=== PATIENT | female | born 1940 | race Caucasian/White ===

== ENCOUNTER → 2019-10-25 05:30 | Outpatient (REF) | payer MEDICARE, OTHER, SELFPAY ==
[2019-10-25 07:46] LABS: Prothrombin Time Fingerstick 20.1 SEC (11.9-14.4)
== END ==
LOC: OLS.ACH 05:30
PROVIDERS: Visit Provider Family Medicine
DX: G93.41 Metabolic encephalopathy (principal); I82.409 Acute embolism and thrombosis of unspecified deep veins of unspecified lower extremity
CPT/HCPCS: 36416; 85610

== ENCOUNTER → 2019-10-28 05:41 | Outpatient (REF) | payer MEDICARE, OTHER, SELFPAY ==
[2019-10-28 07:22] LABS: International Normalized Ratio 1.3; Prothrombin Time (Protime)PT. 16.1 SECONDS (11.7-14.9)
== END ==
LOC: OLS.ACH 05:41
PROVIDERS: Visit Provider Family Medicine
DX: I82.409 Acute embolism and thrombosis of unspecified deep veins of unspecified lower extremity (principal)
CPT/HCPCS: 36415; 85610

== ENCOUNTER → 2019-10-30 04:30 | Outpatient (REF) | payer MEDICARE, OTHER, SELFPAY ==
[2019-10-30 08:30] LABS: Prothrombin Time (Protime)PT. 22.3 SECONDS (11.7-14.9)
== END ==
LOC: OLS.ACH 04:30
PROVIDERS: Visit Provider Family Medicine
DX: I82.409 Acute embolism and thrombosis of unspecified deep veins of unspecified lower extremity (principal)
CPT/HCPCS: 36415; 85610

== ENCOUNTER → 2019-11-02 05:00 | Outpatient (REF) | payer MEDICARE, OTHER, SELFPAY ==
[2019-11-02 09:01] LABS: Prothrombin Time Fingerstick 29.5 SEC (11.9-14.4)
== END ==
LOC: OLS.ACH 05:00
PROVIDERS: Visit Provider Family Medicine
DX: G93.41 Metabolic encephalopathy (principal); I65.21 Occlusion and stenosis of right carotid artery
CPT/HCPCS: 36416; 85610

== ENCOUNTER → 2019-11-06 05:00 | Outpatient (REF) | payer MEDICARE, OTHER, SELFPAY ==
[2019-11-06 09:26] LABS: Prothrombin Time Fingerstick 31.9 SEC (11.9-14.4)
== END ==
LOC: OLS.ACH 05:00
PROVIDERS: Visit Provider Family Medicine
DX: G93.41 Metabolic encephalopathy (principal); I65.21 Occlusion and stenosis of right carotid artery
CPT/HCPCS: 36416; 85610

== ENCOUNTER → 2019-11-14 04:00 | Outpatient (REF) | payer MEDICARE, OTHER, SELFPAY ==
[2019-11-14 09:09] LABS: International Normalized Ratio 1.8; Prothrombin Time (Protime)PT. 20.7 SECONDS (11.7-14.9)
== END ==
LOC: OLS.ACH 04:00
PROVIDERS: Referring Provider Family Medicine; Visit Provider Family Medicine
DX: G93.41 Metabolic encephalopathy (principal); I25.10 Atherosclerotic heart disease of native coronary artery without angina pectoris
CPT/HCPCS: 36415; 85610

== ENCOUNTER → 2019-11-23 05:00 | Outpatient (REF) | payer SELFPAY ==
[2019-11-23 08:51] LABS: Prothrombin Time Fingerstick 24.6 SEC (11.9-14.4)
== END ==
LOC: OLS.ACH 05:00
PROVIDERS: Referring Provider Family Medicine; Visit Provider Family Medicine
DX: G93.41 Metabolic encephalopathy (principal); I65.21 Occlusion and stenosis of right carotid artery
CPT/HCPCS: 36416; 85610

== ENCOUNTER → 2019-12-25 04:00 | Outpatient (REF) | payer MEDICARE, OTHER, SELFPAY ==
[2019-12-25 08:40] LABS: Prothrombin Time Fingerstick 23.8 SEC (11.9-14.4)
== END ==
LOC: OLS.ACH 04:00
PROVIDERS: Referring Provider Family Medicine; Visit Provider Family Medicine
DX: I65.21 Occlusion and stenosis of right carotid artery (principal)
CPT/HCPCS: 36416; 85610

== ENCOUNTER → 2020-01-02 10:17 | Outpatient (REF) | payer MEDICARE, OTHER, SELFPAY ==
[2020-01-02 11:19] LABS: Absolute Lymphocyte Count 1.37 X10^3/uL (0.83-4.51); Absolute Neutrophil Count 4.3 X10^3/uL (2.0-7.7); Basophil# 0.02 X10^3/uL; Basophil% 0.3 % (0-1); Eosinophil# 0.12 X10^3/uL; Eosinophils% 1.8 % (0-5); Hematocrit 40.3 % (37-47); Hemoglobin 12.4 g/dL (12.0-15.0); Lymphocyte # 1.37 X10^3/ul (4.0); Mean Corp Hgb Conc 30.8 g/dL (32-36); Mean Corpuscular Hgb 26.8 pg (27.0-32.0); Mean Platelet Vol. 9.9 fl (6.2-12.0); Monocyte% 10.8 % (0-10); NRBC Flagged by Analyzer 0 % (0-5); Neutrophil # 4.27 X10^3/uL (2.7-7.7); Neutrophil % 65.6 % (47-70); Platelet Count 279 K/mm3 (150-450); RBC Distribution Width CV 16.1 % (11.6-14.6); RBC Distribution Width SD 51.9 fl (35.1-43.9); Red Blood Count 4.63 M/mm3 (4.2-5.4); White Blood Count 6.5 K/mm3 (4.4-11.0)
[2020-01-02 11:28] LABS: Anion Gap 4 (5-15); BUN 14 mg/dL (7-18); BUN/Creat Ratio 21.8 RATIO (10-20); Calcium,Total 8.6 mg/dL (8.5-10.1); Chloride 106 mmol/L (98-107); Creatinine, Serum 0.64 mg/dL (0.55-1.02); EST Glomerular Filtration Rate 95 mL/min (>60); Est Glom Filt Rate - Afr Amer 114 mL/min (>60); Glucose 106 mg/dL (74-106); Potassium 3.8 mmol/L (3.5-5.1); Sodium Level 139 mmol/L (136-145)
== END ==
LOC: OLS.ACH 10:17
PROVIDERS: Visit Provider Family Medicine
DX: R13.12 Dysphagia, oropharyngeal phase (principal)
CPT/HCPCS: 36415; 80048; 85025

== ENCOUNTER → 2020-01-22 04:00 | Outpatient (REF) | payer MEDICARE, OTHER, SELFPAY ==
[2020-01-22 08:15] LABS: Prothrombin Time Fingerstick 24.1 SEC (11.9-14.4)
== END ==
LOC: OLS.ACH 04:00
PROVIDERS: Referring Provider Family Medicine; Visit Provider Family Medicine
DX: I65.21 Occlusion and stenosis of right carotid artery (principal)
CPT/HCPCS: 36416; 85610

== ENCOUNTER → 2020-01-29 15:30 | Outpatient (REF) | payer MEDICARE, OTHER, SELFPAY ==
[2020-01-29 16:31] LABS: Hematocrit 40.6 % (37-47); Hemoglobin 12.6 g/dL (12.0-15.0); Mean Corpuscular Volume 87.1 fL (81-99); Platelet Count 268 K/mm3 (150-450); RBC Distribution Width CV 16.5 % (11.6-14.6); Red Blood Count 4.66 M/mm3 (4.2-5.4); White Blood Count 6.4 K/mm3 (4.4-11.0)
[2020-01-29 16:40] LABS: International Normalized Ratio 1.9; Prothrombin Time (Protime)PT. 20.9 SECONDS (11.7-14.9)
[2020-01-29 16:41] LABS: Anion Gap 4 (5-15); BUN 15 mg/dL (7-18); BUN/Creat Ratio 23.3 RATIO (10-20); Calcium,Total 8.7 mg/dL (8.5-10.1); Chloride 108 mmol/L (98-107); Creatinine, Serum 0.64 mg/dL (0.55-1.02); EST Glomerular Filtration Rate 94 mL/min (>60); Est Glom Filt Rate - Afr Amer 114 mL/min (>60); Glucose 93 mg/dL (74-106); Potassium 3.8 mmol/L (3.5-5.1); Sodium Level 141 mmol/L (136-145)
== END ==
LOC: OLS.ACH 15:30
PROVIDERS: Referring Provider Family Medicine; Visit Provider Family Medicine
DX: I65.21 Occlusion and stenosis of right carotid artery (principal); R19.5 Other fecal abnormalities
CPT/HCPCS: 36415; 80048; 85027; 85610; 87493

== ENCOUNTER → 2020-02-27 05:00 | Outpatient (REF) | payer MEDICARE, OTHER, SELFPAY ==
[2020-02-27 09:01] LABS: Prothrombin Time Fingerstick 20.5 SEC (11.9-14.4)
== END ==
LOC: OLS.ACH 05:00
PROVIDERS: Visit Provider Family Medicine
DX: I65.21 Occlusion and stenosis of right carotid artery (principal)
CPT/HCPCS: 36416; 85610

== ENCOUNTER → 2020-03-06 05:00 | Outpatient (REF) | payer MEDICARE, OTHER, SELFPAY | LOC: LABSPEC 05:00 | PROVIDERS: Referring Provider Family Medicine; Visit Provider Family Medicine | DX: Z11.59 Encounter for screening for other viral diseases (principal) | CPT/HCPCS: 87635; U0003 ==

== ENCOUNTER → 2020-03-08 05:00 | Outpatient (REF) | payer MEDICARE, OTHER, SELFPAY ==
[2020-03-08 09:36] LABS: Prothrombin Time Fingerstick 23.1 SEC (11.9-14.4)
== END ==
LOC: OLS.ACH 05:00
PROVIDERS: Visit Provider Family Medicine
DX: I82.5Y2 Chronic embolism and thrombosis of unspecified deep veins of left proximal lower extremity (principal)
CPT/HCPCS: 36416; 85610

== ENCOUNTER → 2020-03-13 05:00 | Outpatient (REF) | payer MEDICARE, OTHER, SELFPAY | LOC: OLS.ACH 05:00 | PROVIDERS: Visit Provider Family Medicine | DX: Z11.59 Encounter for screening for other viral diseases (principal) | CPT/HCPCS: 87635; U0003 ==

== ENCOUNTER → 2020-03-18 10:59 | Outpatient (REF) | payer MEDICARE, OTHER, SELFPAY | LOC: OLS.ACH 10:59 | PROVIDERS: Visit Provider Family Medicine | DX: Z11.59 Encounter for screening for other viral diseases (principal) | CPT/HCPCS: 87635; U0003 ==

== ENCOUNTER → 2020-03-22 12:51 | Outpatient (REF) | payer MEDICARE, OTHER, SELFPAY | LOC: OLS.ACH 12:51 | PROVIDERS: Referring Provider Family Medicine; Visit Provider Family Medicine | DX: Z03.818 Encounter for observation for suspected exposure to other biological agents ruled out (principal) | CPT/HCPCS: 87635; U0003 ==

== ENCOUNTER → 2020-03-25 05:00 | Outpatient (REF) | payer MEDICARE, OTHER, SELFPAY ==
[2020-03-25 11:15] LABS: Prothrombin Time Fingerstick 20.9 SEC (11.9-14.4)
== END ==
LOC: OLS.ACH 05:00
PROVIDERS: Referring Provider Family Medicine; Visit Provider Family Medicine
DX: I65.21 Occlusion and stenosis of right carotid artery (principal)
CPT/HCPCS: 36416; 85610

== ENCOUNTER → 2020-03-25 08:00 | Outpatient (REF) | payer MEDICARE, OTHER, SELFPAY | LOC: OLS.ACH 08:00 | PROVIDERS: PCP Family Medicine; Referring Provider Family Medicine; Visit Provider Family Medicine | DX: Z03.818 Encounter for observation for suspected exposure to other biological agents ruled out (principal) | CPT/HCPCS: 87635; U0003 ==

== ENCOUNTER → 2020-03-29 10:04 | Outpatient (REF) | payer MEDICARE, OTHER, SELFPAY | LOC: OLS.ACH 10:04 | PROVIDERS: PCP Family Medicine; Referring Provider Family Medicine; Visit Provider Family Medicine | DX: Z03.818 Encounter for observation for suspected exposure to other biological agents ruled out (principal) | CPT/HCPCS: 87635; U0003 ==

== ENCOUNTER → 2020-04-01 14:02 | Outpatient (REF) | payer MEDICARE, OTHER, SELFPAY | LOC: OLS.ACH 14:02 | PROVIDERS: PCP Family Medicine; Referring Provider Family Medicine; Visit Provider Family Medicine | DX: Z03.818 Encounter for observation for suspected exposure to other biological agents ruled out (principal) | CPT/HCPCS: 87635; U0003 ==

== ENCOUNTER → 2020-04-05 10:29 | Outpatient (REF) | payer MEDICARE, OTHER, SELFPAY | LOC: OLS.ACH 10:29 | PROVIDERS: PCP Family Medicine; Referring Provider Family Medicine; Visit Provider Family Medicine | DX: Z03.818 Encounter for observation for suspected exposure to other biological agents ruled out (principal) | CPT/HCPCS: 87635; U0003 ==

== ENCOUNTER → 2020-04-08 04:00 | Outpatient (REF) | payer MEDICARE, OTHER, SELFPAY | LOC: OLS.ACH 04:00 | PROVIDERS: PCP Family Medicine; Referring Provider Family Medicine; Visit Provider Family Medicine | DX: I82.409 Acute embolism and thrombosis of unspecified deep veins of unspecified lower extremity (principal) | CPT/HCPCS: 36416; 85610 ==

== ENCOUNTER → 2020-04-09 11:14 | Outpatient (REF) | payer MEDICARE, OTHER, SELFPAY | LOC: OLS.ACH 11:14 | PROVIDERS: PCP Family Medicine; Referring Provider Family Medicine; Visit Provider Family Medicine | DX: Z03.818 Encounter for observation for suspected exposure to other biological agents ruled out (principal) | CPT/HCPCS: 87635; U0003 ==

== ENCOUNTER → 2020-04-12 12:03 | Outpatient (REF) | payer MEDICARE, OTHER, SELFPAY | LOC: OLS.ACH 12:03 | PROVIDERS: PCP Family Medicine; Referring Provider Family Medicine; Visit Provider Family Medicine | DX: Z03.818 Encounter for observation for suspected exposure to other biological agents ruled out (principal) | CPT/HCPCS: 87635; U0003 ==

== ENCOUNTER → 2020-04-16 16:30 | Outpatient (REF) | payer MEDICARE, OTHER, SELFPAY | LOC: OLS.ACH 16:30 | PROVIDERS: PCP Family Medicine; Referring Provider Family Medicine; Visit Provider Family Medicine | DX: Z03.818 Encounter for observation for suspected exposure to other biological agents ruled out (principal) | CPT/HCPCS: 87635; U0003 ==

== ENCOUNTER → 2020-04-17 05:00 | Outpatient (REF) | payer MEDICARE, OTHER, SELFPAY ==
[2020-04-17 07:41] LABS: Prothrombin Time Fingerstick 20.9 SEC (11.9-14.4)
== END ==
LOC: OLS.ACH 05:00
PROVIDERS: PCP Family Medicine; Referring Provider Family Medicine; Visit Provider Family Medicine
DX: I82.409 Acute embolism and thrombosis of unspecified deep veins of unspecified lower extremity (principal)
CPT/HCPCS: 36416; 85610

== ENCOUNTER → 2020-04-22 05:00 | Outpatient (REF) | payer MEDICARE, OTHER, SELFPAY ==
[2020-04-22 08:56] LABS: Prothrombin Time Fingerstick 18.5 SEC (11.9-14.4)
== END ==
LOC: OLS.ACH 05:00
PROVIDERS: PCP Family Medicine; Visit Provider Family Medicine
DX: I65.21 Occlusion and stenosis of right carotid artery (principal)
CPT/HCPCS: 36416; 85610

== ENCOUNTER → 2020-04-23 07:35 | Outpatient (REF) | payer MEDICARE, OTHER, SELFPAY | LOC: OLS.ACH 07:35 | PROVIDERS: PCP Family Medicine; Referring Provider Family Medicine; Visit Provider Family Medicine | DX: Z03.818 Encounter for observation for suspected exposure to other biological agents ruled out (principal) | CPT/HCPCS: 87635; U0003 ==

== ENCOUNTER → 2020-04-25 11:15 | Outpatient (REF) | payer MEDICARE, OTHER, SELFPAY ==
[2020-04-25 12:20] LABS: Prothrombin Time Fingerstick 19.5 SEC (11.9-14.4)
== END ==
LOC: OLS.ACH 11:15
PROVIDERS: PCP Family Medicine; Referring Provider Family Medicine; Visit Provider Family Medicine
DX: Z79.01 Long term (current) use of anticoagulants (principal)
CPT/HCPCS: 36416; 85610

== ENCOUNTER → 2020-04-29 04:00 | Outpatient (REF) | payer MEDICARE, OTHER, SELFPAY ==
[2020-04-29 07:11] LABS: Prothrombin Time Fingerstick 22.1 SEC (11.9-14.4)
== END ==
LOC: OLS.ACH 04:00
PROVIDERS: PCP Family Medicine; Referring Provider Family Medicine; Visit Provider Family Medicine
DX: I82.5Y2 Chronic embolism and thrombosis of unspecified deep veins of left proximal lower extremity (principal)
CPT/HCPCS: 36416; 85610

== ENCOUNTER → 2020-04-30 14:13 | Outpatient (REF) | payer MEDICARE, OTHER, SELFPAY | LOC: OLS.ACH 14:13 | PROVIDERS: PCP Family Medicine; Visit Provider Family Medicine | DX: Z03.818 Encounter for observation for suspected exposure to other biological agents ruled out (principal) | CPT/HCPCS: 87635; U0003 ==

== ENCOUNTER → 2020-05-06 04:00 | Outpatient (REF) | payer MEDICARE, OTHER, SELFPAY | LOC: OLS.ACH 04:00 | PROVIDERS: PCP Family Medicine; Referring Provider Family Medicine; Visit Provider Family Medicine | DX: I82.5Y2 Chronic embolism and thrombosis of unspecified deep veins of left proximal lower extremity (principal) | CPT/HCPCS: 36416; 85610 ==

== ENCOUNTER → 2020-05-07 11:12 | Outpatient (REF) | payer MEDICARE, OTHER, SELFPAY | LOC: OLS.ACH 11:12 | PROVIDERS: PCP Family Medicine; Referring Provider Family Medicine; Visit Provider Family Medicine | DX: Z03.818 Encounter for observation for suspected exposure to other biological agents ruled out (principal) | CPT/HCPCS: 87635; U0003 ==

== ENCOUNTER → 2020-05-13 05:00 | Outpatient (REF) | payer MEDICARE, OTHER, SELFPAY ==
[2020-05-13 08:35] LABS: Absolute Lymphocyte Count 2.41 X10^3/uL (0.83-4.51); Absolute Neutrophil Count 4.6 X10^3/uL (2.0-7.7); Basophil# 0.03 X10^3/uL; Basophil% 0.4 % (0-1); Eosinophil# 0.19 X10^3/uL; Eosinophils% 2.3 % (0-5); Hematocrit 44.9 % (37-47); Hemoglobin 13.8 g/dL (12.0-15.0); Lymphocyte # 2.41 X10^3/ul (4.0); Lymphocyte % 29.2 % (19-41); Mean Corp Hgb Conc 30.7 g/dL (32-36); Mean Corpuscular Hgb 28.3 pg (27.0-32.0); Mean Platelet Vol. 10.6 fl (6.2-12.0); Monocyte# 1.04 X10^3/uL; Monocyte% 12.6 % (0-10); NRBC Flagged by Analyzer 0 % (0-5); Neutrophil # 4.55 X10^3/uL (2.7-7.7); Neutrophil % 55.3 % (47-70); Platelet Count 277 K/mm3 (150-450); RBC Distribution Width CV 14.9 % (11.6-14.6); RBC Distribution Width SD 50.1 fl (35.1-43.9); Red Blood Count 4.88 M/mm3 (4.2-5.4); White Blood Count 8.2 K/mm3 (4.4-11.0)
[2020-05-13 08:50] LABS: Anion Gap 5 (5-15); BUN 21 mg/dL (7-18); BUN/Creat Ratio 28.8 RATIO (10-20); Calcium,Total 8.7 mg/dL (8.5-10.1); Chloride 106 mmol/L (98-107); Creatinine, Serum 0.73 mg/dL (0.55-1.02); EST Glomerular Filtration Rate 82 mL/min (>60); Est Glom Filt Rate - Afr Amer 99 mL/min (>60); Glucose 80 mg/dL (74-106); Potassium 4.3 mmol/L (3.5-5.1); Sodium Level 139 mmol/L (136-145)
== END ==
LOC: OLS.ACH 05:00
PROVIDERS: PCP Family Medicine; Referring Provider Family Medicine; Visit Provider Family Medicine
DX: I10 Essential (primary) hypertension (principal)
CPT/HCPCS: 36415; 80048; 85025

== ENCOUNTER → 2020-05-20 04:00 | Outpatient (REF) | payer MEDICARE, OTHER, SELFPAY ==
[2020-05-20 08:10] LABS: Prothrombin Time Fingerstick 21.2 SEC (11.9-14.4)
== END ==
LOC: OLS.ACH 04:00
PROVIDERS: PCP Family Medicine; Referring Provider Family Medicine; Visit Provider Family Medicine
DX: I65.21 Occlusion and stenosis of right carotid artery (principal)
CPT/HCPCS: 36416; 85610

== ENCOUNTER → 2020-05-21 10:05 | Outpatient (REF) | payer MEDICARE, OTHER, SELFPAY | LOC: OLS.ACH 10:05 | PROVIDERS: PCP Family Medicine; Referring Provider Family Medicine; Visit Provider Family Medicine | DX: Z03.818 Encounter for observation for suspected exposure to other biological agents ruled out (principal) | CPT/HCPCS: 87635; U0003 ==

== ENCOUNTER → 2020-05-27 05:00 | Outpatient (REF) | payer MEDICARE, OTHER, SELFPAY ==
[2020-05-27 08:11] LABS: Prothrombin Time Fingerstick 34.2 SEC (11.9-14.4)
== END ==
LOC: OLS.ACH 05:00
PROVIDERS: PCP Family Medicine; Referring Provider Family Medicine; Visit Provider Family Medicine
DX: I65.21 Occlusion and stenosis of right carotid artery (principal)
CPT/HCPCS: 36416; 85610

== ENCOUNTER → 2020-06-03 05:15 | Outpatient (REF) | payer MEDICARE, OTHER, SELFPAY ==
[2020-06-03 07:50] LABS: Prothrombin Time Fingerstick 20.3 SEC (11.9-14.4)
== END ==
LOC: OLS.ACH 05:15
PROVIDERS: PCP Family Medicine; Visit Provider Family Medicine
DX: I48.91 Unspecified atrial fibrillation (principal)
CPT/HCPCS: 36416; 85610

== ENCOUNTER → 2020-06-04 07:58 | Outpatient (REF) | payer MEDICARE, OTHER, SELFPAY | LOC: OLS.ACH 07:58 | PROVIDERS: PCP Family Medicine; Referring Provider Family Medicine; Visit Provider Family Medicine | DX: Z03.818 Encounter for observation for suspected exposure to other biological agents ruled out (principal) | CPT/HCPCS: 87635; U0003 ==

== ENCOUNTER → 2020-06-18 09:24 | Outpatient (REF) | payer MEDICARE, OTHER, SELFPAY | LOC: OLS.ACH 09:24 | PROVIDERS: PCP Family Medicine; Referring Provider Family Medicine; Visit Provider Family Medicine | DX: Z03.818 Encounter for observation for suspected exposure to other biological agents ruled out (principal) | CPT/HCPCS: 87635; U0003 ==

== ENCOUNTER → 2020-06-24 04:00 | Outpatient (REF) | payer MEDICARE, OTHER, SELFPAY ==
[2020-06-24 07:30] LABS: Prothrombin Time Fingerstick 19.4 SEC (11.9-14.4)
== END ==
LOC: OLS.ACH 04:00
PROVIDERS: PCP Family Medicine; Referring Provider Family Medicine; Visit Provider Family Medicine
DX: Z79.01 Long term (current) use of anticoagulants (principal)
CPT/HCPCS: 36416; 85610

== ENCOUNTER → 2020-07-02 17:48 | Outpatient (REF) | payer MEDICARE, OTHER, SELFPAY | LOC: OLS.ACH 17:48 | PROVIDERS: PCP Family Medicine; Referring Provider Family Medicine; Visit Provider Family Medicine | DX: Z03.818 Encounter for observation for suspected exposure to other biological agents ruled out (principal) | CPT/HCPCS: 87635; U0005; U0003 ==

== ENCOUNTER → 2020-07-29 04:00 | Outpatient (REF) | payer MEDICARE, OTHER, SELFPAY ==
[2020-07-29 07:44] LABS: International Normalized Ratio 1.8; Prothrombin Time (Protime)PT. 20.6 SECONDS (11.7-14.9)
== END ==
LOC: OLS.ACH 04:00
PROVIDERS: PCP Family Medicine; Visit Provider Family Medicine
DX: Z79.01 Long term (current) use of anticoagulants (principal); Z79.899 Other long term (current) drug therapy
CPT/HCPCS: 36415; 85610

== ENCOUNTER → 2020-08-12 05:00 | Outpatient (REF) | payer MEDICARE, OTHER, SELFPAY ==
[2020-08-12 09:32] LABS: Basophil# 0.04 X10^3/uL; Basophil% 0.6 % (0-1); Eosinophil# 0.24 X10^3/uL; Eosinophils% 3.4 % (0-5); Hematocrit 40.9 % (37-47); Mean Corp Hgb Conc 31.8 g/dL (32-36); Mean Corpuscular Hgb 29.2 pg (27.0-32.0); Mean Corpuscular Volume 91.9 fL (81-99); Mean Platelet Vol. 10.9 fl (6.2-12.0); Monocyte# 0.85 X10^3/uL; Monocyte% 12.1 % (0-10); NRBC Flagged by Analyzer 0 % (0-5); Neutrophil # 3.98 X10^3/uL (2.7-7.7); Neutrophil % 56.5 % (47-70); Platelet Count 256 K/mm3 (150-450); RBC Distribution Width CV 14.6 % (11.6-14.6); RBC Distribution Width SD 49.1 fl (35.1-43.9); Red Blood Count 4.45 M/mm3 (4.2-5.4)
[2020-08-12 09:50] LABS: Anion Gap 4 (5-15); BUN 17 mg/dL (7-18); BUN/Creat Ratio 24.5 RATIO (10-20); Calcium,Total 9.2 mg/dL (8.5-10.1); Chloride 108 mmol/L (98-107); Creatinine, Serum 0.69 mg/dL (0.55-1.02); EST Glomerular Filtration Rate 86 mL/min (>60); Est Glom Filt Rate - Afr Amer 104 mL/min (>60); Glucose 70 mg/dL (74-106); Potassium 3.8 mmol/L (3.5-5.1); Sodium Level 141 mmol/L (136-145)
== END ==
LOC: OLS.ACH 05:00
PROVIDERS: PCP Family Medicine; Referring Provider Family Medicine; Visit Provider Family Medicine
DX: I10 Essential (primary) hypertension (principal); G30.9 Alzheimer's disease, unspecified
CPT/HCPCS: 36415; 80048; 85025

== ENCOUNTER → 2020-08-19 05:00 | Outpatient (REF) | payer MEDICARE, OTHER, SELFPAY ==
[2020-08-19 08:20] LABS: Prothrombin Time Fingerstick 17.2 SEC (11.9-14.4)
== END ==
LOC: OLS.ACH 05:00
PROVIDERS: PCP Family Medicine; Visit Provider Family Medicine
DX: Z79.01 Long term (current) use of anticoagulants (principal)
CPT/HCPCS: 36416; 85610

== ENCOUNTER → 2020-08-26 04:00 | Outpatient (REF) | payer MEDICARE, OTHER, SELFPAY ==
[2020-08-26 08:57] LABS: International Normalized Ratio 1.6; Prothrombin Time (Protime)PT. 18.6 SECONDS (11.7-14.9)
== END ==
LOC: OLS.ACH 04:00
PROVIDERS: PCP Family Medicine; Visit Provider Family Medicine
DX: Z79.01 Long term (current) use of anticoagulants (principal)
CPT/HCPCS: 36415; 85610

== ENCOUNTER → 2020-09-05 05:00 | Outpatient (REF) | payer MEDICARE, OTHER, SELFPAY ==
[2020-09-05 08:29] LABS: International Normalized Ratio 1.9; Prothrombin Time (Protime)PT. 20.9 SECONDS (11.7-14.9)
== END ==
LOC: OLS.ACH 05:00
PROVIDERS: PCP Family Medicine; Visit Provider Family Medicine
DX: G30.9 Alzheimer's disease, unspecified (principal); I65.21 Occlusion and stenosis of right carotid artery
CPT/HCPCS: 36415; 85610

== ENCOUNTER → 2020-09-16 04:00 | Outpatient (REF) | payer MEDICARE, OTHER, SELFPAY ==
[2020-09-16 07:05] LABS: INR Fingerstick 2.9; Prothrombin Time Fingerstick 31.8 SEC (11.9-14.4)
== END ==
LOC: OLS.ACH 04:00
PROVIDERS: PCP Family Medicine; Referring Provider Family Medicine; Visit Provider Family Medicine
DX: Z79.01 Long term (current) use of anticoagulants (principal)
CPT/HCPCS: 36416; 85610

== ENCOUNTER → 2020-10-14 04:00 | Outpatient (REF) | payer MEDICARE, OTHER, SELFPAY ==
[2020-10-14 07:00] LABS: INR Fingerstick 2.7; Prothrombin Time Fingerstick 29.8 SEC (11.9-14.4)
== END ==
LOC: OLS.ACH 04:00
PROVIDERS: PCP Family Medicine; Referring Provider Family Medicine; Visit Provider Family Medicine
DX: I82.542 Chronic embolism and thrombosis of left tibial vein (principal)
CPT/HCPCS: 36416; 85610

== ENCOUNTER → 2020-11-04 04:00 | Outpatient (REF) | payer MEDICARE, OTHER, SELFPAY ==
[2020-11-04 08:29] LABS: Absolute Neutrophil Count 3.5 X10^3/uL (2.0-7.7); Basophil# 0.03 X10^3/uL; Basophil% 0.4 % (0-1); Eosinophil# 0.22 X10^3/uL; Eosinophils% 3.1 % (0-5); Hematocrit 42.6 % (37-47); Hemoglobin 13.4 g/dL (12.0-15.0); Lymphocyte % 32.6 % (19-41); Mean Corp Hgb Conc 31.5 g/dL (32-36); Mean Corpuscular Hgb 29.7 pg (27.0-32.0); Mean Corpuscular Volume 94.5 fL (81-99); Mean Platelet Vol. 10.7 fl (6.2-12.0); Monocyte# 0.98 X10^3/uL; Monocyte% 13.9 % (0-10); NRBC Flagged by Analyzer 0 % (0-5); Neutrophil % 49.7 % (47-70); Platelet Count 240 K/mm3 (150-450); RBC Distribution Width CV 13.5 % (11.6-14.6); RBC Distribution Width SD 47.7 fl (35.1-43.9); Red Blood Count 4.51 M/mm3 (4.2-5.4); White Blood Count 7.1 K/mm3 (4.4-11.0)
[2020-11-04 08:52] LABS: Anion Gap 4 (5-15); BUN 22 mg/dL (7-18); BUN/Creat Ratio 35.1 RATIO (10-20); Calcium,Total 8.8 mg/dL (8.5-10.1); Chloride 106 mmol/L (98-107); Creatinine, Serum 0.63 mg/dL (0.55-1.02); EST Glomerular Filtration Rate 97 mL/min (>60); Est Glom Filt Rate - Afr Amer 117 mL/min (>60); Glucose 74 mg/dL (74-106); Potassium 3.7 mmol/L (3.5-5.1); Sodium Level 141 mmol/L (136-145)
== END ==
LOC: OLS.ACH 04:00
PROVIDERS: PCP Family Medicine; Referring Provider Family Medicine; Visit Provider Family Medicine
DX: G30.9 Alzheimer's disease, unspecified (principal); I10 Essential (primary) hypertension
CPT/HCPCS: 36415; 80048; 85025

== ENCOUNTER → 2020-11-11 04:00 | Outpatient (REF) | payer MEDICARE, OTHER, SELFPAY ==
[2020-11-11 07:05] LABS: INR Fingerstick 2.8; Prothrombin Time Fingerstick 31.5 SEC (11.9-14.4)
== END ==
LOC: OLS.ACH 04:00
PROVIDERS: PCP Family Medicine; Visit Provider Family Medicine
DX: I82.542 Chronic embolism and thrombosis of left tibial vein (principal)
CPT/HCPCS: 36416; 85610

== ENCOUNTER → 2020-12-09 04:00 | Outpatient (REF) | payer MEDICARE, OTHER, SELFPAY ==
[2020-12-09 07:05] LABS: INR Fingerstick 2.9; Prothrombin Time Fingerstick 31.9 SEC (11.9-14.4)
== END ==
LOC: OLS.ACH 04:00
PROVIDERS: PCP Family Medicine; Visit Provider Family Medicine
DX: I82.542 Chronic embolism and thrombosis of left tibial vein (principal)
CPT/HCPCS: 36416; 85610

== ENCOUNTER → 2021-01-06 05:00 | Outpatient (REF) | payer MEDICARE, OTHER, SELFPAY ==
[2021-01-06 08:31] LABS: INR Fingerstick 3.1; Prothrombin Time Fingerstick 34.5 SEC (11.9-14.4)
== END ==
LOC: OLS.ACH 05:00
PROVIDERS: PCP Family Medicine; Visit Provider Family Medicine
DX: I82.542 Chronic embolism and thrombosis of left tibial vein (principal)
CPT/HCPCS: 36416; 85610

== ENCOUNTER → 2021-01-27 05:00 | Outpatient (REF) | payer MEDICARE, OTHER, SELFPAY ==
[2021-01-27 08:34] LABS: Absolute Lymphocyte Count 2.02 X10^3/uL (0.83-4.51); Basophil# 0.04 X10^3/uL; Basophil% 0.7 % (0-1); Eosinophil# 0.13 X10^3/uL; Eosinophils% 2.1 % (0-5); Hematocrit 40.6 % (37-47); Lymphocyte # 2.02 X10^3/ul (0.83-4.51); Lymphocyte % 33.2 % (19-41); Mean Corpuscular Hgb 29.3 pg (27.0-32.0); Mean Corpuscular Volume 91.4 fL (81-99); Mean Platelet Vol. 10.5 fl (6.2-12.0); Monocyte# 0.84 X10^3/uL; Monocyte% 13.8 % (0-10); NRBC Flagged by Analyzer 0 % (0-5); Neutrophil # 3.04 X10^3/uL (2.7-7.7); Platelet Count 237 K/mm3 (150-450); RBC Distribution Width CV 14.2 % (11.6-14.6); RBC Distribution Width SD 47.8 fl (35.1-43.9); Red Blood Count 4.44 M/mm3 (4.2-5.4); White Blood Count 6.1 K/mm3 (4.4-11.0)
[2021-01-27 08:49] LABS: Anion Gap 5 (5-15); BUN 16 mg/dL (7-18); BUN/Creat Ratio 24.5 RATIO (10-20); Calcium,Total 8.4 mg/dL (8.5-10.1); Chloride 108 mmol/L (98-107); Creatinine, Serum 0.65 mg/dL (0.55-1.02); EST Glomerular Filtration Rate 92 mL/min (>60); Est Glom Filt Rate - Afr Amer 112 mL/min (>60); Glucose 76 mg/dL (74-106); Potassium 3.8 mmol/L (3.5-5.1); Sodium Level 140 mmol/L (136-145)
== END ==
LOC: OLS.ACH 05:00
PROVIDERS: PCP Family Medicine; Visit Provider Family Medicine
DX: G30.9 Alzheimer's disease, unspecified (principal); I10 Essential (primary) hypertension
CPT/HCPCS: 36415; 80048; 85025

== ENCOUNTER → 2021-02-03 04:00 | Outpatient (REF) | payer MEDICARE, OTHER, SELFPAY ==
[2021-02-03 07:26] LABS: INR Fingerstick 2.7; Prothrombin Time Fingerstick 30.1 SEC (11.9-14.4)
== END ==
LOC: OLS.ACH 04:00
PROVIDERS: PCP Family Medicine; Referring Provider Family Medicine; Visit Provider Family Medicine
DX: Z79.01 Long term (current) use of anticoagulants (principal)
CPT/HCPCS: 36416; 85610

== ENCOUNTER → 2021-03-03 04:00 | Outpatient (REF) | payer MEDICARE, OTHER, SELFPAY ==
[2021-03-03 06:40] LABS: INR Fingerstick 3.5; Prothrombin Time Fingerstick 38.1 SEC (11.9-14.4)
== END ==
LOC: OLS.ACH 04:00
PROVIDERS: PCP Family Medicine; Visit Provider Family Medicine
DX: I82.5Y2 Chronic embolism and thrombosis of unspecified deep veins of left proximal lower extremity (principal)
CPT/HCPCS: 36416; 85610

== ENCOUNTER → 2021-03-17 05:00 | Outpatient (REF) | payer MEDICARE, OTHER, SELFPAY ==
[2021-03-17 08:23] LABS: International Normalized Ratio 2.4; Prothrombin Time (Protime)PT. 25.4 SECONDS (11.7-14.9)
== END ==
LOC: OLS.ACH 05:00
PROVIDERS: PCP Family Medicine; Visit Provider Family Medicine
DX: I82.542 Chronic embolism and thrombosis of left tibial vein (principal)
CPT/HCPCS: 85610

== ENCOUNTER 2021-03-31 04:00 | Outpatient (REF) | payer MEDICARE, OTHER, SELFPAY ==
[2021-03-31 07:21] LABS: INR Fingerstick 3.4; Prothrombin Time Fingerstick 37.5 SEC (11.9-14.4)
== END 2021-03-31 23:59 | disposition home or self-care (01) ==
LOC: OLS.ACH 04:00
PROVIDERS: PCP Family Medicine; Visit Provider Family Medicine
DX: I82.5Y2 Chronic embolism and thrombosis of unspecified deep veins of left proximal lower extremity (principal); Z79.01 Long term (current) use of anticoagulants
CPT/HCPCS: 36416; 85610

== ENCOUNTER → 2021-04-07 04:00 | Outpatient (REF) | payer MEDICARE, OTHER, SELFPAY ==
[2021-04-07 06:11] LABS: INR Fingerstick 1.8
== END ==
LOC: OLS.ACH 04:00
PROVIDERS: PCP Family Medicine; Visit Provider Family Medicine
DX: I82.542 Chronic embolism and thrombosis of left tibial vein (principal); Z79.01 Long term (current) use of anticoagulants
CPT/HCPCS: 36416; 85610

== ENCOUNTER → 2021-04-14 04:00 | Outpatient (REF) | payer MEDICARE, OTHER, SELFPAY ==
[2021-04-14 08:10] LABS: INR Fingerstick 2.5; Prothrombin Time Fingerstick 28.3 SEC (11.9-14.4)
== END ==
LOC: OLS.ACH 04:00
PROVIDERS: PCP Family Medicine; Visit Provider Family Medicine
DX: I82.5Y2 Chronic embolism and thrombosis of unspecified deep veins of left proximal lower extremity (principal); Z79.01 Long term (current) use of anticoagulants
CPT/HCPCS: 36416; 85610

== ENCOUNTER → 2021-04-21 05:00 | Outpatient (REF) | payer MEDICARE, OTHER, SELFPAY ==
[2021-04-21 09:08] LABS: Absolute Lymphocyte Count 1.59 X10^3/uL (0.83-4.51); Absolute Neutrophil Count 5.2 X10^3/uL (2.0-7.7); Basophil# 0.03 X10^3/uL; Basophil% 0.4 % (0-1); Eosinophil# 0.05 X10^3/uL; Eosinophils% 0.6 % (0-5); Hematocrit 39.3 % (37-47); Hemoglobin 12.9 g/dL (12.0-15.0); Lymphocyte # 1.59 X10^3/ul (0.83-4.51); Lymphocyte % 19.6 % (19-41); Mean Corp Hgb Conc 32.8 g/dL (32-36); Mean Corpuscular Hgb 29.4 pg (27.0-32.0); Mean Corpuscular Volume 89.5 fL (81-99); Mean Platelet Vol. 10.9 fl (6.2-12.0); Monocyte# 1.25 X10^3/uL; Monocyte% 15.4 % (0-10); NRBC Flagged by Analyzer 0 % (0-5); Neutrophil # 5.16 X10^3/uL (2.7-7.7); Neutrophil % 63.5 % (47-70); Platelet Count 191 K/mm3 (150-450); RBC Distribution Width CV 13.9 % (11.6-14.6); RBC Distribution Width SD 45.8 fl (35.1-43.9); Red Blood Count 4.39 M/mm3 (4.2-5.4); White Blood Count 8.1 K/mm3 (4.4-11.0)
[2021-04-21 09:20] LABS: Anion Gap 6 (5-15); BUN 18 mg/dL (7-18); BUN/Creat Ratio 27.2 RATIO (10-20); Calcium,Total 8.4 mg/dL (8.5-10.1); Chloride 105 mmol/L (98-107); Creatinine, Serum 0.66 mg/dL (0.55-1.02); EST Glomerular Filtration Rate 91 mL/min (>60); Est Glom Filt Rate - Afr Amer 110 mL/min (>60); Glucose 90 mg/dL (74-106); Potassium 3.8 mmol/L (3.5-5.1); Sodium Level 136 mmol/L (136-145)
== END ==
LOC: OLS.ACH 05:00
PROVIDERS: PCP Family Medicine; Visit Provider Family Medicine
DX: G30.9 Alzheimer's disease, unspecified (principal); I10 Essential (primary) hypertension
CPT/HCPCS: 36415; 80048; 85025

== ENCOUNTER → 2021-04-28 04:00 | Outpatient (REF) | payer MEDICARE, OTHER, SELFPAY ==
[2021-04-28 06:51] LABS: Prothrombin Time Fingerstick 43.6 SEC (11.9-14.4)
[2021-04-28 07:26] LABS: International Normalized Ratio 3.1
== END ==
LOC: OLS.ACH 04:00
PROVIDERS: PCP Family Medicine; Visit Provider Family Medicine
DX: I82.542 Chronic embolism and thrombosis of left tibial vein (principal)
CPT/HCPCS: 36416; 85610

== ENCOUNTER → 2021-05-26 04:00 | Outpatient (REF) | payer MEDICARE, OTHER, SELFPAY ==
[2021-05-26 07:05] LABS: INR Fingerstick 4.8; Prothrombin Time Fingerstick 50.8 SEC (11.9-14.4)
[2021-05-26 07:56] LABS: Prothrombin Time (Protime)PT. 38.4 SECONDS (11.7-14.9)
== END ==
LOC: OLS.ACH 04:00
PROVIDERS: PCP Family Medicine; Referring Provider Family Medicine; Visit Provider Family Medicine
DX: Z79.01 Long term (current) use of anticoagulants (principal)
CPT/HCPCS: 36415; 36416; 85610

== ENCOUNTER → 2021-05-29 04:00 | Outpatient (REF) | payer MEDICARE, OTHER, SELFPAY ==
[2021-05-29 07:45] LABS: INR Fingerstick 3.9; Prothrombin Time Fingerstick 42.6 SEC (11.9-14.4)
== END ==
LOC: OLS.ACH 04:00
PROVIDERS: PCP Family Medicine; Visit Provider Family Medicine
DX: I82.5Y2 Chronic embolism and thrombosis of unspecified deep veins of left proximal lower extremity (principal)
CPT/HCPCS: 36416; 85610

== ENCOUNTER → 2021-06-02 04:00 | Outpatient (REF) | payer MEDICARE, OTHER, SELFPAY ==
[2021-06-02 07:26] LABS: INR Fingerstick 1.1; Prothrombin Time Fingerstick 13.6 SEC (11.9-14.4)
== END ==
LOC: OLS.ACH 04:00
PROVIDERS: PCP Family Medicine; Visit Provider Family Medicine
DX: I82.542 Chronic embolism and thrombosis of left tibial vein (principal)
CPT/HCPCS: 36416; 85610

== ENCOUNTER → 2021-06-06 03:00 | Outpatient (REF) | payer MEDICARE, OTHER, SELFPAY ==
[2021-06-06 06:21] LABS: INR Fingerstick 1.5; Prothrombin Time Fingerstick 17.3 SEC (11.9-14.4)
== END ==
LOC: OLS.ACH 03:00
PROVIDERS: PCP Family Medicine; Referring Provider Family Medicine; Visit Provider Family Medicine
DX: I82.5Y2 Chronic embolism and thrombosis of unspecified deep veins of left proximal lower extremity (principal); Z79.01 Long term (current) use of anticoagulants
CPT/HCPCS: 36416; 85610

== ENCOUNTER 2021-06-12 04:00 | Outpatient (REF) | payer MEDICARE, OTHER, SELFPAY ==
[2021-06-12 07:56] LABS: INR Fingerstick 1.7; Prothrombin Time Fingerstick 20.1 SEC (11.9-14.4)
== END 2021-06-12 23:59 | disposition home or self-care (01) ==
LOC: OLS.ACH 04:00
PROVIDERS: PCP Family Medicine; Referring Provider Family Medicine; Visit Provider Family Medicine
DX: Z79.01 Long term (current) use of anticoagulants (principal)
CPT/HCPCS: 36416; 85610

== ENCOUNTER → 2021-06-19 04:00 | Outpatient (REF) | payer MEDICARE, OTHER, SELFPAY ==
[2021-06-19 08:15] LABS: INR Fingerstick 2.4; Prothrombin Time Fingerstick 27.4 SEC (11.9-14.4)
== END ==
LOC: OLS.ACH 04:00
PROVIDERS: PCP Family Medicine; Visit Provider Family Medicine
DX: I82.542 Chronic embolism and thrombosis of left tibial vein (principal); Z79.01 Long term (current) use of anticoagulants
CPT/HCPCS: 36416; 85610

== ENCOUNTER 2021-06-30 04:00 | Outpatient (REF) | payer MEDICARE, OTHER, SELFPAY ==
[2021-06-30 07:50] LABS: INR Fingerstick 3.2; Prothrombin Time Fingerstick 35.6 SEC (11.9-14.4)
== END 2021-06-30 23:59 | disposition home or self-care (01) ==
LOC: OLS.ACH 04:00
PROVIDERS: PCP Family Medicine; Visit Provider Family Medicine
DX: Z79.01 Long term (current) use of anticoagulants (principal)
CPT/HCPCS: 36416; 85610

== ENCOUNTER → 2021-07-14 | Outpatient (REF) | payer MEDICARE, OTHER, SELFPAY ==
[2021-07-14 09:35] LABS: Absolute Lymphocyte Count 2.04 X10^3/uL (0.83-4.51); Absolute Neutrophil Count 3.2 X10^3/uL (2.0-7.7); Basophil# 0.02 X10^3/uL; Basophil% 0.3 % (0-1); Eosinophil# 0.16 X10^3/uL; Eosinophils% 2.6 % (0-5); Hematocrit 42.2 % (37-47); Hemoglobin 13.4 g/dL (12.0-15.0); Lymphocyte # 2.04 X10^3/ul (0.83-4.51); Lymphocyte % 33.3 % (19-41); Mean Corp Hgb Conc 31.8 g/dL (32-36); Mean Corpuscular Hgb 28.8 pg (27.0-32.0); Mean Corpuscular Volume 90.6 fL (81-99); Mean Platelet Vol. 10.8 fl (6.2-12.0); Monocyte# 0.69 X10^3/uL; Monocyte% 11.3 % (0-10); NRBC Flagged by Analyzer 0 % (0-5); Neutrophil % 52.2 % (47-70); Platelet Count 251 K/mm3 (150-450); RBC Distribution Width CV 13.8 % (11.6-14.6); RBC Distribution Width SD 45.9 fl (35.1-43.9); Red Blood Count 4.66 M/mm3 (4.2-5.4); White Blood Count 6.1 K/mm3 (4.4-11.0)
[2021-07-14 09:57] LABS: Anion Gap 4 (5-15); BUN 15 mg/dL (7-18); BUN/Creat Ratio 26.2 RATIO (10-20); Calcium,Total 8.4 mg/dL (8.5-10.1); Chloride 106 mmol/L (98-107); Creatinine, Serum 0.57 mg/dL (0.55-1.02); EST Glomerular Filtration Rate 107 mL/min (>60); Est Glom Filt Rate - Afr Amer 130 mL/min (>60); Glucose 79 mg/dL (74-106); Potassium 3.8 mmol/L (3.5-5.1); Sodium Level 138 mmol/L (136-145)
== END | disposition home or self-care (01) ==
LOC: OLS.ACH 04:00
PROVIDERS: PCP Family Medicine; Referring Provider Family Medicine; Visit Provider Family Medicine
DX: I10 Essential (primary) hypertension (principal); G30.9 Alzheimer's disease, unspecified
CPT/HCPCS: 36415; 80048; 85025

== ENCOUNTER 2021-08-01 10:15 | Outpatient (REF) | payer MEDICARE, OTHER, SELFPAY ==
[2021-08-01 11:52] LABS: Prothrombin Time (Protime)PT. 30.3 SECONDS (11.7-14.9)
== END 2021-08-01 23:59 | disposition home or self-care (01) ==
LOC: OLS.ACH 10:15
PROVIDERS: PCP Family Medicine; Visit Provider Family Medicine
DX: I82.5Y2 Chronic embolism and thrombosis of unspecified deep veins of left proximal lower extremity (principal); Z79.01 Long term (current) use of anticoagulants
CPT/HCPCS: 36415; 85610

== ENCOUNTER 2021-08-29 04:00 | Outpatient (REF) | payer MEDICARE, OTHER, SELFPAY ==
[2021-08-29 06:26] LABS: INR Fingerstick 3.2; Prothrombin Time Fingerstick 36.7 SEC (11.7-14.9)
== END 2021-08-29 23:59 | disposition home or self-care (01) ==
LOC: OLS.ACH 04:00
PROVIDERS: PCP Family Medicine; Visit Provider Family Medicine
DX: Z79.01 Long term (current) use of anticoagulants (principal)
CPT/HCPCS: 36416; 85610

== ENCOUNTER → 2021-09-26 | Outpatient (REF) | payer MEDICARE, OTHER, SELFPAY ==
[2021-09-26 08:30] LABS: INR Fingerstick 3.3; Prothrombin Time Fingerstick 37.8 SEC (11.7-14.9)
== END | disposition home or self-care (01) ==
LOC: OLS.ACH 05:00
PROVIDERS: PCP Family Medicine; Visit Provider Family Medicine
DX: Z79.01 Long term (current) use of anticoagulants (principal)
CPT/HCPCS: 36416; 85610

== ENCOUNTER → 2021-10-06 | Outpatient (REF) | payer MEDICARE, OTHER, SELFPAY ==
[2021-10-06 08:45] LABS: Absolute Lymphocyte Count 2.28 X10^3/uL (0.83-4.51); Absolute Neutrophil Count 4.4 X10^3/uL (2.0-7.7); Basophil# 0.03 X10^3/uL; Basophil% 0.4 % (0-1); Eosinophil# 0.06 X10^3/uL; Eosinophils% 0.8 % (0-5); Hematocrit 40.6 % (37-47); Hemoglobin 13.3 g/dL (12.0-15.0); Lymphocyte # 2.28 X10^3/ul (0.83-4.51); Mean Corp Hgb Conc 32.8 g/dL (32-36); Mean Corpuscular Volume 88.5 fL (81-99); Mean Platelet Vol. 9.9 fl (6.2-12.0); Monocyte# 0.81 X10^3/uL; Monocyte% 10.7 % (0-10); NRBC Flagged by Analyzer 0 % (0-5); Neutrophil % 57.8 % (47-70); Platelet Count 269 K/mm3 (150-450); RBC Distribution Width CV 14.1 % (11.6-14.6); RBC Distribution Width SD 45.4 fl (35.1-43.9); Red Blood Count 4.59 M/mm3 (4.2-5.4); White Blood Count 7.6 K/mm3 (4.4-11.0)
[2021-10-06 08:56] LABS: International Normalized Ratio 2.7; Prothrombin Time (Protime)PT. 28.3 SECONDS (11.7-14.9)
[2021-10-06 09:11] LABS: Anion Gap 4 (5-15); BUN 16 mg/dL (7-18); BUN/Creat Ratio 28.8 RATIO (10-20); Calcium,Total 8.8 mg/dL (8.5-10.1); Chloride 107 mmol/L (98-107); Creatinine, Serum 0.56 mg/dL (0.55-1.02); EST Glomerular Filtration Rate 111 mL/min (>60); Est Glom Filt Rate - Afr Amer 135 mL/min (>60); Glucose 87 mg/dL (74-106); Potassium 3.6 mmol/L (3.5-5.1); Sodium Level 139 mmol/L (136-145)
== END | disposition home or self-care (01) ==
LOC: OLS.ACH 04:00
PROVIDERS: PCP Family Medicine; Referring Provider Family Medicine; Visit Provider Family Medicine
DX: I73.89 Other specified peripheral vascular diseases (principal); G30.9 Alzheimer's disease, unspecified; Z79.01 Long term (current) use of anticoagulants
CPT/HCPCS: 36415; 80048; 85025; 85610

== ENCOUNTER → 2021-10-24 | Outpatient (REF) | payer MEDICARE, OTHER, SELFPAY ==
[2021-10-24 09:06] LABS: INR Fingerstick 2.3; Prothrombin Time Fingerstick 26.9 SEC (11.7-14.9)
== END | disposition home or self-care (01) ==
LOC: OLS.ACH 05:00
PROVIDERS: PCP Family Medicine; Visit Provider Family Medicine
DX: I82.542 Chronic embolism and thrombosis of left tibial vein (principal); Z79.01 Long term (current) use of anticoagulants
CPT/HCPCS: 36416; 85610

== ENCOUNTER → 2021-11-21 | Outpatient (REF) | payer MEDICARE, OTHER, SELFPAY ==
[2021-11-21 07:51] LABS: INR Fingerstick 3.5; Prothrombin Time Fingerstick 39.1 SEC (11.7-14.9)
== END | disposition home or self-care (01) ==
LOC: OLS.ACH 05:00
PROVIDERS: PCP Family Medicine; Visit Provider Family Medicine
DX: Z79.01 Long term (current) use of anticoagulants (principal)
CPT/HCPCS: 36416; 85610

== ENCOUNTER → 2021-11-24 | Outpatient (REF) | payer SELFPAY ==
[2021-11-24 12:15] LABS: Prothrombin Time Fingerstick 33.8 SEC (11.7-14.9)
== END | disposition home or self-care (01) ==
LOC: OLS.ACH 05:00
PROVIDERS: PCP Family Medicine; Visit Provider Family Medicine
DX: I82.542 Chronic embolism and thrombosis of left tibial vein (principal); Z79.01 Long term (current) use of anticoagulants
CPT/HCPCS: 36416; 85610

== ENCOUNTER → 2021-12-04 | Outpatient (REF) | payer MEDICARE, OTHER, SELFPAY ==
[2021-12-04 07:55] LABS: INR Fingerstick 2.4; Prothrombin Time Fingerstick 28.1 SEC (11.7-14.9)
== END | disposition home or self-care (01) ==
LOC: OLS.ACH 05:00
PROVIDERS: PCP Family Medicine; Visit Provider Internal Medicine
DX: I82.542 Chronic embolism and thrombosis of left tibial vein (principal); Z79.01 Long term (current) use of anticoagulants
CPT/HCPCS: 36416; 85610

== ENCOUNTER → 2021-12-19 | Outpatient (REF) | payer MEDICARE, OTHER, SELFPAY ==
[2021-12-19 07:55] LABS: INR Fingerstick 2.3
== END | disposition home or self-care (01) ==
LOC: OLS.ACH 05:00
PROVIDERS: PCP Family Medicine; Visit Provider Family Medicine
DX: I82.542 Chronic embolism and thrombosis of left tibial vein (principal)
CPT/HCPCS: 36416; 85610

== ENCOUNTER → 2021-12-29 | Outpatient (REF) | payer MEDICARE, OTHER, SELFPAY ==
[2021-12-29 08:03] LABS: Absolute Lymphocyte Count 1.56 X10^3/uL (0.83-4.51); Absolute Neutrophil Count 5.7 X10^3/uL (2.0-7.7); Basophil# 0.03 X10^3/uL; Basophil% 0.4 % (0-1); Eosinophil# 0.01 X10^3/uL; Eosinophils% 0.1 % (0-5); Hematocrit 43.4 % (37-47); Lymphocyte # 1.56 X10^3/ul (0.83-4.51); Mean Corp Hgb Conc 32.3 g/dL (32-36); Mean Corpuscular Hgb 29.4 pg (27.0-32.0); Mean Platelet Vol. 10.5 fl (6.2-12.0); Monocyte# 0.52 X10^3/uL; Monocyte% 6.7 % (0-10); NRBC Flagged by Analyzer 0 % (0-5); Neutrophil # 5.65 X10^3/uL (2.7-7.7); Neutrophil % 72.4 % (47-70); Platelet Count 234 K/mm3 (150-450); RBC Distribution Width CV 13.9 % (11.6-14.6); RBC Distribution Width SD 46.9 fl (35.1-43.9); Red Blood Count 4.77 M/mm3 (4.2-5.4); White Blood Count 7.8 K/mm3 (4.4-11.0)
[2021-12-29 08:15] LABS: Anion Gap 10 (5-15); BUN 16 mg/dL (7-18); BUN/Creat Ratio 29.3 RATIO (10-20); Calcium,Total 8.9 mg/dL (8.5-10.1); Chloride 105 mmol/L (98-107); Creatinine, Serum 0.55 mg/dL (0.55-1.02); EST Glomerular Filtration Rate 113 mL/min (>60); Est Glom Filt Rate - Afr Amer 137 mL/min (>60); Glucose 90 mg/dL (74-106); Potassium 3.8 mmol/L (3.5-5.1); Sodium Level 142 mmol/L (136-145)
== END | disposition home or self-care (01) ==
LOC: OLS.ACH 04:00
PROVIDERS: PCP Family Medicine; Referring Provider Family Medicine; Visit Provider Family Medicine
DX: E78.00 Pure hypercholesterolemia, unspecified (principal); G30.9 Alzheimer's disease, unspecified; I73.89 Other specified peripheral vascular diseases
CPT/HCPCS: 36415; 80048; 85025

== ENCOUNTER → 2022-01-16 | Outpatient (REF) | payer MEDICARE, OTHER, SELFPAY ==
[2022-01-16 08:34] LABS: International Normalized Ratio 2.8; Prothrombin Time (Protime)PT. 28.8 SECONDS (11.7-14.9)
== END | disposition home or self-care (01) ==
LOC: OLS.ACH 06:10
PROVIDERS: PCP Family Medicine; Visit Provider Family Medicine
DX: I82.5Y2 Chronic embolism and thrombosis of unspecified deep veins of left proximal lower extremity (principal)
CPT/HCPCS: 36415; 85610

== ENCOUNTER → 2022-01-19 | Outpatient (REF) | payer MEDICARE, OTHER, SELFPAY ==
[2022-01-19 08:21] LABS: INR Fingerstick 2.6
== END ==
LOC: OLS.ACH 05:00
PROVIDERS: PCP Family Medicine; Visit Provider Family Medicine
DX: Z79.01 Long term (current) use of anticoagulants (principal)
CPT/HCPCS: 36416; 85610

== ENCOUNTER → 2022-02-13 | Outpatient (REF) | payer MEDICARE, OTHER, SELFPAY ==
[2022-02-13 07:40] LABS: INR Fingerstick 1.8; Prothrombin Time Fingerstick 21.9 SEC (11.7-14.9)
== END ==
LOC: OLS.ACH 05:00
PROVIDERS: PCP Family Medicine; Visit Provider Family Medicine
DX: I82.5Y2 Chronic embolism and thrombosis of unspecified deep veins of left proximal lower extremity (principal)
CPT/HCPCS: 36416; 85610

== ENCOUNTER → 2022-03-13 | Outpatient (REF) | payer MEDICARE, OTHER, SELFPAY ==
[2022-03-13 07:05] LABS: INR Fingerstick 2.1; Prothrombin Time Fingerstick 24.5 SEC (11.7-14.9)
== END ==
LOC: OLS.ACH 04:00
PROVIDERS: PCP Family Medicine; Visit Provider Family Medicine
DX: I82.542 Chronic embolism and thrombosis of left tibial vein (principal)
CPT/HCPCS: 36416; 85610

== ENCOUNTER → 2022-03-23 | Outpatient (REF) | payer MEDICARE, OTHER, SELFPAY ==
[2022-03-23 09:56] LABS: Absolute Neutrophil Count 4.7 X10^3/uL (2.0-7.7); Basophil# 0.03 X10^3/uL; Basophil% 0.4 % (0-1); Eosinophil# 0.14 X10^3/uL; Eosinophils% 1.7 % (0-5); Hemoglobin 13.7 g/dL (12.0-15.0); Lymphocyte % 26.1 % (19-41); Mean Corp Hgb Conc 32.6 g/dL (32-36); Mean Corpuscular Hgb 30.1 pg (27.0-32.0); Mean Corpuscular Volume 92.3 fL (81-99); Mean Platelet Vol. 11.1 fl (6.2-12.0); Monocyte# 1.05 X10^3/uL; NRBC Flagged by Analyzer 0 % (0-5); Neutrophil # 4.71 X10^3/uL (2.7-7.7); Neutrophil % 58.6 % (47-70); Platelet Count 242 K/mm3 (150-450); RBC Distribution Width CV 13.6 % (11.6-14.6); RBC Distribution Width SD 46.8 fl (35.1-43.9); Red Blood Count 4.55 M/mm3 (4.2-5.4); White Blood Count 8.1 K/mm3 (4.4-11.0)
[2022-03-23 10:26] LABS: Anion Gap 8 (5-15); BUN 16 mg/dL (7-18); BUN/Creat Ratio 25.8 RATIO (10-20); Calcium,Total 8.6 mg/dL (8.5-10.1); Chloride 108 mmol/L (98-107); Creatinine, Serum 0.62 mg/dL (0.55-1.02); EST Glomerular Filtration Rate 98 mL/min (>60); Est Glom Filt Rate - Afr Amer 118 mL/min (>60); Glucose 77 mg/dL (74-106); Sodium Level 139 mmol/L (136-145)
== END ==
LOC: OLS.ACH 05:00
PROVIDERS: PCP Family Medicine; Visit Provider Family Medicine
DX: I10 Essential (primary) hypertension (principal); F02.80 Dementia in other diseases classified elsewhere, unspecified severity, without behavioral disturbance, psychotic disturbance, mood disturbance, and anxiety; G30.9 Alzheimer's disease, unspecified
CPT/HCPCS: 36415; 80048; 85025

== ENCOUNTER → 2022-04-10 | Outpatient (REF) | payer MEDICARE, OTHER, SELFPAY ==
[2022-04-10 08:20] LABS: INR Fingerstick 2.5; Prothrombin Time Fingerstick 28.9 SEC (11.7-14.9)
== END ==
LOC: OLS.ACH 05:00
PROVIDERS: PCP Family Medicine; Visit Provider Family Medicine
DX: Z79.01 Long term (current) use of anticoagulants (principal)
CPT/HCPCS: 36416; 85610

== ENCOUNTER → 2022-05-08 | Outpatient (REF) | payer MEDICARE, OTHER, SELFPAY ==
[2022-05-08 08:30] LABS: INR Fingerstick 2.2; Prothrombin Time Fingerstick 25.9 SEC (11.7-14.9)
== END ==
LOC: OLS.ACH 05:00
PROVIDERS: PCP Family Medicine; Visit Provider Family Medicine
DX: I82.542 Chronic embolism and thrombosis of left tibial vein (principal); Z79.01 Long term (current) use of anticoagulants
CPT/HCPCS: 36416; 85610

== ENCOUNTER → 2022-06-05 | Outpatient (REF) | payer MEDICARE, OTHER, SELFPAY ==
[2022-06-05 07:51] LABS: Prothrombin Time Fingerstick 33.7 SEC (11.7-14.9)
== END ==
LOC: OLS.ACH 05:00
PROVIDERS: PCP Family Medicine; Visit Provider Family Medicine
DX: I10 Essential (primary) hypertension (principal); I73.89 Other specified peripheral vascular diseases
CPT/HCPCS: 36416; 85610

== ENCOUNTER → 2022-06-16 | Outpatient (REF) | payer MEDICARE, MEDICAID, SELFPAY ==
[2022-06-16 10:39] LABS: Absolute Lymphocyte Count 2.04 X10^3/uL (0.83-4.51); Absolute Neutrophil Count 3.7 X10^3/uL (2.0-7.7); Basophil# 0.03 X10^3/uL; Basophil% 0.4 % (0-1); Eosinophil# 0.25 X10^3/uL; Eosinophils% 3.5 % (0-5); Hematocrit 46.2 % (37-47); Hemoglobin 14.2 g/dL (12.0-15.0); Lymphocyte # 2.04 X10^3/ul (0.83-4.51); Lymphocyte % 28.3 % (19-41); Mean Corp Hgb Conc 30.7 g/dL (32-36); Mean Corpuscular Hgb 29.3 pg (27.0-32.0); Mean Corpuscular Volume 95.3 fL (81-99); Mean Platelet Vol. 10.6 fl (6.2-12.0); Monocyte# 1.12 X10^3/uL; Monocyte% 15.5 % (0-10); NRBC Flagged by Analyzer 0 % (0-5); Neutrophil # 3.74 X10^3/uL (2.7-7.7); Neutrophil % 51.7 % (47-70); Platelet Count 250 K/mm3 (150-450); RBC Distribution Width CV 14.2 % (11.6-14.6); Red Blood Count 4.85 M/mm3 (4.2-5.4); White Blood Count 7.2 K/mm3 (4.4-11.0)
[2022-06-16 11:14] LABS: Anion Gap 7 (5-15); BUN 20 mg/dL (7-18); BUN/Creat Ratio 26.6 RATIO (10-20); Calcium,Total 8.6 mg/dL (8.5-10.1); Chloride 108 mmol/L (98-107); Creatinine, Serum 0.75 mg/dL (0.55-1.02); EST Glomerular Filtration Rate 78 mL/min (>60); Est Glom Filt Rate - Afr Amer 95 mL/min (>60); Glucose 71 mg/dL (74-106); Potassium 4.2 mmol/L (3.5-5.1); Sodium Level 138 mmol/L (136-145)
== END ==
LOC: OLS.ACH 04:00
PROVIDERS: PCP Family Medicine; Visit Provider Family Medicine
DX: G30.9 Alzheimer's disease, unspecified (principal); I10 Essential (primary) hypertension
CPT/HCPCS: 80048; 85025

== ENCOUNTER → 2022-07-02 | Outpatient (REF) | payer MEDICARE, OTHER, SELFPAY ==
[2022-07-02 08:45] LABS: INR Fingerstick 3.4; Prothrombin Time Fingerstick 38.8 SEC (11.7-14.9)
== END ==
LOC: OLS.ACH 05:00
PROVIDERS: PCP Family Medicine; Visit Provider Internal Medicine
DX: Z45.02 Encounter for adjustment and management of automatic implantable cardiac defibrillator (principal); Z79.01 Long term (current) use of anticoagulants
CPT/HCPCS: 36416; 85610

== ENCOUNTER → 2022-07-03 | Outpatient (REF) | payer MEDICARE, OTHER, SELFPAY ==
[2022-07-03 09:10] LABS: Prothrombin Time Fingerstick 34.1 SEC (11.7-14.9)
== END ==
LOC: OLS.ACH 05:00
PROVIDERS: PCP Family Medicine; Visit Provider Internal Medicine
DX: Z79.01 Long term (current) use of anticoagulants (principal); I82.5Y2 Chronic embolism and thrombosis of unspecified deep veins of left proximal lower extremity
CPT/HCPCS: 36416; 85610

== ENCOUNTER → 2022-07-04 | Outpatient (REF) | payer MEDICARE, OTHER, SELFPAY ==
[2022-07-04 12:40] LABS: INR Fingerstick 2.2; Prothrombin Time Fingerstick 25.6 SEC (11.7-14.9)
== END ==
LOC: OLS.ACH 11:28
PROVIDERS: PCP Family Medicine; Visit Provider Internal Medicine
DX: Z79.01 Long term (current) use of anticoagulants (principal)
CPT/HCPCS: 36416; 85610

== ENCOUNTER → 2022-07-06 | Outpatient (REF) | payer MEDICARE, OTHER, SELFPAY ==
[2022-07-06 08:05] LABS: Prothrombin Time Fingerstick 34.7 SEC (11.7-14.9)
== END ==
LOC: OLS.ACH 04:00
PROVIDERS: PCP Internal Medicine; Referring Provider Internal Medicine; Visit Provider Internal Medicine
DX: Z79.01 Long term (current) use of anticoagulants; I48.91 Unspecified atrial fibrillation
CPT/HCPCS: 36416; 85610

== ENCOUNTER → 2022-07-07 | Outpatient (REF) | payer MEDICARE, OTHER, SELFPAY ==
[2022-07-07 07:40] LABS: INR Fingerstick 2.1; Prothrombin Time Fingerstick 25.1 SEC (11.7-14.9)
== END ==
LOC: OLS.ACH 05:00
PROVIDERS: PCP Family Medicine; Visit Provider Internal Medicine
DX: Z79.01 Long term (current) use of anticoagulants (principal)
CPT/HCPCS: 36416; 85610

== ENCOUNTER → 2022-07-09 | Outpatient (REF) | payer MEDICARE, OTHER, SELFPAY ==
[2022-07-09 07:35] LABS: INR Fingerstick 2.4; Prothrombin Time Fingerstick 27.9 SEC (11.7-14.9)
== END ==
LOC: OLS.ACH 05:00
PROVIDERS: PCP Family Medicine; Visit Provider Internal Medicine
DX: Z79.01 Long term (current) use of anticoagulants (principal)
CPT/HCPCS: 36416; 85610

== ENCOUNTER → 2022-07-16 | Outpatient (REF) | payer MEDICARE, OTHER, SELFPAY ==
[2022-07-16 08:35] LABS: INR Fingerstick 2.9; Prothrombin Time Fingerstick 32.8 SEC (11.7-14.9)
== END ==
LOC: OLS.ACH 05:00
PROVIDERS: PCP Family Medicine; Visit Provider Internal Medicine
DX: Z79.01 Long term (current) use of anticoagulants (principal)
CPT/HCPCS: 36416; 85610

== ENCOUNTER → 2022-07-23 | Outpatient (REF) | payer MEDICARE, OTHER, SELFPAY ==
[2022-07-23 08:30] LABS: INR Fingerstick 3.2; Prothrombin Time Fingerstick 35.9 SEC (11.7-14.9)
== END ==
LOC: OLS.ACH 05:00
PROVIDERS: PCP Family Medicine; Visit Provider Internal Medicine
DX: Z79.01 Long term (current) use of anticoagulants (principal)
CPT/HCPCS: 36416; 85610

== ENCOUNTER → 2022-07-24 | Outpatient (REF) | payer MEDICARE, OTHER, SELFPAY ==
[2022-07-24 08:30] LABS: INR Fingerstick 2.9; Prothrombin Time Fingerstick 32.9 SEC (11.7-14.9)
== END ==
LOC: OLS.ACH 05:00
PROVIDERS: PCP Family Medicine; Visit Provider Internal Medicine
DX: I82.542 Chronic embolism and thrombosis of left tibial vein (principal); Z79.01 Long term (current) use of anticoagulants
CPT/HCPCS: 36416; 85610

== ENCOUNTER → 2022-07-31 | Outpatient (REF) | payer MEDICARE, OTHER, MEDICAID, SELFPAY ==
[2022-07-31 07:45] LABS: INR Fingerstick 1.8; Prothrombin Time Fingerstick 21.1 SEC (11.7-14.9)
== END ==
LOC: OLS.ACH 05:00
PROVIDERS: PCP Family Medicine; Visit Provider Internal Medicine
DX: I82.5Y2 Chronic embolism and thrombosis of unspecified deep veins of left proximal lower extremity (principal)
CPT/HCPCS: 36416; 85610

== ENCOUNTER → 2022-08-07 | Outpatient (REF) | payer MEDICARE, OTHER, SELFPAY ==
[2022-08-07 08:16] LABS: INR Fingerstick 3.4; Prothrombin Time Fingerstick 38.5 SEC (11.7-14.9)
== END ==
LOC: OLS.ACH 05:00
PROVIDERS: PCP Family Medicine; Visit Provider Internal Medicine
DX: I82.5Y2 Chronic embolism and thrombosis of unspecified deep veins of left proximal lower extremity (principal)
CPT/HCPCS: 36416; 85610

== ENCOUNTER → 2022-08-08 | Outpatient (REF) | payer MEDICARE, OTHER, MEDICAID, SELFPAY ==
[2022-08-08 13:33] LABS: International Normalized Ratio 2.7; Prothrombin Time (Protime)PT. 28.7 SECONDS (11.7-14.9)
== END ==
LOC: OLS.ACH 12:30
PROVIDERS: PCP Family Medicine; Visit Provider Internal Medicine
DX: I82.5Y2 Chronic embolism and thrombosis of unspecified deep veins of left proximal lower extremity (principal)
CPT/HCPCS: 36415; 85610

== ENCOUNTER → 2022-08-17 | Outpatient (REF) | payer MEDICARE, OTHER, MEDICAID, SELFPAY ==
[2022-08-17 08:25] LABS: INR Fingerstick 2.3; Prothrombin Time Fingerstick 27.1 SEC (11.7-14.9)
== END ==
LOC: OLS.ACH 04:00
PROVIDERS: PCP Family Medicine; Visit Provider Internal Medicine
DX: Z79.01 Long term (current) use of anticoagulants (principal)
CPT/HCPCS: 36416; 85610

== ENCOUNTER → 2022-08-31 | Outpatient (REF) | payer MEDICARE, OTHER, MEDICAID, SELFPAY ==
[2022-08-31 08:50] LABS: INR Fingerstick 2.3; Prothrombin Time Fingerstick 27.1 SEC (11.7-14.9)
== END ==
LOC: OLS.ACH 05:00
PROVIDERS: PCP Family Medicine; Visit Provider Internal Medicine
DX: I82.5Y2 Chronic embolism and thrombosis of unspecified deep veins of left proximal lower extremity (principal)
CPT/HCPCS: 36416; 85610

== ENCOUNTER → 2022-09-07 | Outpatient (REF) | payer MEDICARE, OTHER, SELFPAY ==
[2022-09-07 09:07] LABS: Absolute Lymphocyte Count 2.26 X10^3/uL (0.83-4.51); Absolute Neutrophil Count 4.3 X10^3/uL (2.0-7.7); Basophil# 0.03 X10^3/uL; Basophil% 0.4 % (0-1); Eosinophil# 0.23 X10^3/uL; Hematocrit 45.6 % (37-47); Hemoglobin 14.5 g/dL (12.0-15.0); Lymphocyte # 2.26 X10^3/ul (0.83-4.51); Lymphocyte % 29.5 % (19-41); Mean Corp Hgb Conc 31.8 g/dL (32-36); Mean Corpuscular Hgb 29.5 pg (27.0-32.0); Mean Corpuscular Volume 92.7 fL (81-99); Mean Platelet Vol. 10.9 fl (6.2-12.0); Monocyte# 0.86 X10^3/uL; Monocyte% 11.2 % (0-10); NRBC Flagged by Analyzer 0 % (0-5); Neutrophil # 4.27 X10^3/uL (2.7-7.7); Neutrophil % 55.6 % (47-70); Platelet Count 272 K/mm3 (150-450); RBC Distribution Width CV 14.2 % (11.6-14.6); RBC Distribution Width SD 48.1 fl (35.1-43.9); Red Blood Count 4.92 M/mm3 (4.2-5.4); White Blood Count 7.7 K/mm3 (4.4-11.0)
[2022-09-07 09:16] LABS: Anion Gap 4 (5-15); BUN 13 mg/dL (7-18); BUN/Creat Ratio 23.6 RATIO (10-20); Calcium,Total 8.8 mg/dL (8.5-10.1); Chloride 109 mmol/L (98-107); Creatinine, Serum 0.55 mg/dL (0.55-1.02); EST Glomerular Filtration Rate 112 mL/min (>60); Est Glom Filt Rate - Afr Amer 135 mL/min (>60); Glucose 81 mg/dL (74-106); Sodium Level 140 mmol/L (136-145)
== END ==
LOC: OLS.ACH 05:00
PROVIDERS: PCP Family Medicine; Visit Provider Internal Medicine
DX: I10 Essential (primary) hypertension (principal); G30.9 Alzheimer's disease, unspecified
CPT/HCPCS: 36415; 80048; 85025

== ENCOUNTER → 2022-09-14 | Outpatient (REF) | payer MEDICARE, OTHER, MEDICAID, SELFPAY ==
[2022-09-14 08:20] LABS: INR Fingerstick 2.1; Prothrombin Time Fingerstick 23.2 SEC (11.7-14.9)
== END ==
LOC: OLS.ACH 04:00
PROVIDERS: PCP Family Medicine; Referring Provider Internal Medicine; Visit Provider Internal Medicine
DX: I82.5Y2 Chronic embolism and thrombosis of unspecified deep veins of left proximal lower extremity (principal); Z20.828 Contact with and (suspected) exposure to other viral communicable diseases
CPT/HCPCS: 36416; 85610

== ENCOUNTER → 2022-10-15 | Outpatient (REF) | payer MEDICARE, MEDICAID, SELFPAY ==
[2022-10-15 08:26] LABS: INR Fingerstick 1.8; Prothrombin Time Fingerstick 20.2 SEC (11.7-14.9)
== END ==
LOC: OLS.ACH 05:00
PROVIDERS: PCP Family Medicine; Visit Provider Internal Medicine
DX: I82.5Y2 Chronic embolism and thrombosis of unspecified deep veins of left proximal lower extremity (principal)
CPT/HCPCS: 36416; 85610

== ENCOUNTER → 2022-10-26 | Outpatient (REF) | payer MEDICARE, MEDICAID, SELFPAY ==
[2022-10-26 11:41] LABS: Hematocrit 41.8 % (37-47); Hemoglobin 13.4 g/dL (12.0-15.0); Mean Corp Hgb Conc 32.1 g/dL (32-36); Mean Corpuscular Hgb 29.5 pg (27.0-32.0); Mean Corpuscular Volume 91.9 fL (81-99); Mean Platelet Vol. 10.8 fl (6.2-12.0); Platelet Count 250 K/mm3 (150-450); RBC Distribution Width CV 14.4 % (11.6-14.6); RBC Distribution Width SD 48.8 fl (35.1-43.9); Red Blood Count 4.55 M/mm3 (4.2-5.4); White Blood Count 6.6 K/mm3 (4.4-11.0)
[2022-10-26 11:55] LABS: ALB/GLOB Ratio 0.7 RATIO (0.9-2.4); AST(SGOT) 20 U/L (15-37); Alanine Aminotransfer ALT/SGPT 18 U/L (13-56); Albumin, Serum 2.5 g/dL (3.2-5.0); Alkaline Phosphatase 94 U/L (45-117); Anion Gap 6 (5-15); BUN 10 mg/dL (7-18); BUN/Creat Ratio 16.7 RATIO (10-20); Calcium,Total 8.4 mg/dL (8.5-10.1); Chloride 109 mmol/L (98-107); EST Glomerular Filtration Rate 102 mL/min (>60); Est Glom Filt Rate - Afr Amer 123 mL/min (>60); Globulin 3.7 g/dL (2.2-4.2); Glucose 114 mg/dL (74-106); Potassium 3.5 mmol/L (3.5-5.1); Protein, Total 6.2 g/dL (6.4-8.2); Sodium Level 142 mmol/L (136-145)
== END ==
LOC: OLS.ACH 10:55
PROVIDERS: PCP Family Medicine; Referring Provider Internal Medicine; Visit Provider Internal Medicine
DX: E78.00 Pure hypercholesterolemia, unspecified (principal); I73.89 Other specified peripheral vascular diseases; I65.21 Occlusion and stenosis of right carotid artery; I82.5Y2 Chronic embolism and thrombosis of unspecified deep veins of left proximal lower extremity
CPT/HCPCS: 36415; 80053; 85027; 85610

== ENCOUNTER → 2022-10-27 | Outpatient (REF) | payer MEDICARE, MEDICAID, SELFPAY ==
[2022-10-27 10:11] LABS: INR Fingerstick 2.3
== END ==
LOC: OLS.ACH 05:00
PROVIDERS: PCP Family Medicine; Visit Provider Internal Medicine
DX: I82.5Y2 Chronic embolism and thrombosis of unspecified deep veins of left proximal lower extremity (principal)
CPT/HCPCS: 36416; 85610

== ENCOUNTER → 2022-10-29 | Outpatient (REF) | payer MEDICARE, MEDICAID, SELFPAY ==
[2022-10-29 08:15] LABS: INR Fingerstick 2.7; Prothrombin Time Fingerstick 29.4 SEC (11.7-14.9)
== END ==
LOC: OLS.ACH 05:00
PROVIDERS: PCP Family Medicine; Visit Provider Internal Medicine
DX: I82.5Y2 Chronic embolism and thrombosis of unspecified deep veins of left proximal lower extremity (principal)
CPT/HCPCS: 36416; 85610

== ENCOUNTER → 2022-10-31 | Outpatient (REF) | payer MEDICARE, MEDICAID, SELFPAY ==
[2022-10-31 10:46] LABS: INR Fingerstick 2.3
== END ==
LOC: OLS.ACH 09:00
PROVIDERS: PCP Family Medicine; Visit Provider Internal Medicine
DX: I82.5Y2 Chronic embolism and thrombosis of unspecified deep veins of left proximal lower extremity (principal)
CPT/HCPCS: 36416; 85610

== ENCOUNTER → 2022-11-02 | Outpatient (REF) | payer MEDICARE, MEDICAID, SELFPAY ==
[2022-11-02 08:50] LABS: Prothrombin Time Fingerstick 22.4 SEC (11.7-14.9)
== END ==
LOC: OLS.ACH 05:00
PROVIDERS: PCP Family Medicine; Visit Provider Internal Medicine
DX: Z79.01 Long term (current) use of anticoagulants (principal)
CPT/HCPCS: 36416; 85610

== ENCOUNTER → 2022-11-04 | Outpatient (REF) | payer MEDICARE, MEDICAID, SELFPAY ==
[2022-11-04 09:29] LABS: Anion Gap 3 (5-15); BUN 14 mg/dL (7-18); BUN/Creat Ratio 27.6 RATIO (10-20); Calcium,Total 8.5 mg/dL (8.5-10.1); Chloride 108 mmol/L (98-107); Creatinine, Serum 0.51 mg/dL (0.55-1.02); EST Glomerular Filtration Rate 123 mL/min (>60); Est Glom Filt Rate - Afr Amer 149 mL/min (>60); Glucose 77 mg/dL (74-106); Sodium Level 140 mmol/L (136-145)
== END ==
LOC: OLS.ACH 05:00
PROVIDERS: PCP Family Medicine; Visit Provider Internal Medicine
DX: G30.9 Alzheimer's disease, unspecified (principal)
CPT/HCPCS: 36415; 80048

== ENCOUNTER → 2022-11-30 | Outpatient (REF) | payer MEDICARE, MEDICAID, SELFPAY ==
[2022-11-30 08:12] LABS: Absolute Lymphocyte Count 2.26 X10^3/uL (0.83-4.51); Absolute Neutrophil Count 3.3 X10^3/uL (2.0-7.7); Basophil# 0.04 X10^3/uL; Basophil% 0.6 % (0-1); Eosinophil# 0.22 X10^3/uL; Eosinophils% 3.3 % (0-5); Hematocrit 40.1 % (37-47); Hemoglobin 12.9 g/dL (12.0-15.0); Lymphocyte # 2.26 X10^3/ul (0.83-4.51); Lymphocyte % 33.7 % (19-41); Mean Corp Hgb Conc 32.2 g/dL (32-36); Mean Corpuscular Hgb 29.7 pg (27.0-32.0); Mean Corpuscular Volume 92.2 fL (81-99); Mean Platelet Vol. 11.1 fl (6.2-12.0); Monocyte# 0.83 X10^3/uL; Monocyte% 12.4 % (0-10); NRBC Flagged by Analyzer 0 % (0-5); Neutrophil # 3.33 X10^3/uL (2.7-7.7); Neutrophil % 49.7 % (47-70); Platelet Count 232 K/mm3 (150-450); RBC Distribution Width CV 14.4 % (11.6-14.6); Red Blood Count 4.35 M/mm3 (4.2-5.4); White Blood Count 6.7 K/mm3 (4.4-11.0)
[2022-11-30 08:21] LABS: Anion Gap 3 (5-15); BUN 15 mg/dL (7-18); BUN/Creat Ratio 25.7 RATIO (10-20); Calcium,Total 8.3 mg/dL (8.5-10.1); Chloride 111 mmol/L (98-107); Creatinine, Serum 0.58 mg/dL (0.55-1.02); EST Glomerular Filtration Rate 105 mL/min (>60); Est Glom Filt Rate - Afr Amer 127 mL/min (>60); Glucose 83 mg/dL (74-106); Potassium 4.2 mmol/L (3.5-5.1); Sodium Level 141 mmol/L (136-145)
[2022-11-30 08:53] LABS: International Normalized Ratio 2.3; Prothrombin Time (Protime)PT. 25.9 SECONDS (11.7-14.9)
== END ==
LOC: OLS.ACH 05:00
PROVIDERS: PCP Family Medicine; Visit Provider Internal Medicine
DX: G30.9 Alzheimer's disease, unspecified (principal); I10 Essential (primary) hypertension; I82.5Y2 Chronic embolism and thrombosis of unspecified deep veins of left proximal lower extremity
CPT/HCPCS: 36415; 80048; 85025; 85610

== ENCOUNTER → 2022-12-28 | Outpatient (REF) | payer MEDICARE, MEDICAID, SELFPAY ==
[2022-12-28 07:44] LABS: INR Fingerstick 2.1
== END ==
LOC: OLS.ACH 05:00
PROVIDERS: PCP Family Medicine; Visit Provider Internal Medicine
DX: I82.5Y2 Chronic embolism and thrombosis of unspecified deep veins of left proximal lower extremity (principal); I50.32 Chronic diastolic (congestive) heart failure; E03.9 Hypothyroidism, unspecified
CPT/HCPCS: 36416; 85610

== ENCOUNTER → 2023-01-25 | Outpatient (REF) | payer MEDICARE, MEDICAID, SELFPAY ==
[2023-01-25 08:47] LABS: INR Fingerstick 1.7
== END ==
LOC: OLS.ACH 04:00
PROVIDERS: PCP Family Medicine; Referring Provider Internal Medicine; Visit Provider Internal Medicine
DX: I82.5Y2 Chronic embolism and thrombosis of unspecified deep veins of left proximal lower extremity (principal)
CPT/HCPCS: 36416; 85610

== ENCOUNTER → 2023-02-01 | Outpatient (REF) | payer MEDICARE, SELFPAY ==
[2023-02-01 09:59] LABS: INR Fingerstick 1.8; Prothrombin Time Fingerstick 20.1 SEC (11.7-14.9)
== END ==
LOC: OLS.ACH 05:00
PROVIDERS: PCP Family Medicine; Visit Provider Internal Medicine
DX: Z79.01 Long term (current) use of anticoagulants (principal)
CPT/HCPCS: 36416; 85610

== ENCOUNTER → 2023-02-11 | Outpatient (REF) | payer MEDICARE, SELFPAY ==
[2023-02-11 09:17] LABS: INR Fingerstick 2.2; Prothrombin Time Fingerstick 24.2 SEC (11.7-14.9)
== END ==
LOC: OLS.ACH 05:00
PROVIDERS: PCP Internal Medicine; Referring Provider Internal Medicine; Visit Provider Internal Medicine
DX: Z79.01 Long term (current) use of anticoagulants (principal)
CPT/HCPCS: 36416; 85610

== ENCOUNTER → 2023-02-25 | Outpatient (REF) | payer MEDICARE, MEDICAID, SELFPAY ==
[2023-02-25 09:13] LABS: Absolute Lymphocyte Count 1.88 X10^3/uL (0.83-4.51); Absolute Neutrophil Count 4.3 X10^3/uL (2.0-7.7); Basophil# 0.03 X10^3/uL; Basophil% 0.4 % (0-1); Eosinophil# 0.16 X10^3/uL; Eosinophils% 2.2 % (0-5); Hemoglobin 12.2 g/dL (12.0-15.0); Lymphocyte # 1.88 X10^3/ul (0.83-4.51); Lymphocyte % 26.4 % (19-41); Mean Corp Hgb Conc 30.5 g/dL (32-36); Mean Corpuscular Hgb 28.9 pg (27.0-32.0); Mean Corpuscular Volume 94.8 fL (81-99); Mean Platelet Vol. 11.4 fl (6.2-12.0); Monocyte# 0.78 X10^3/uL; Monocyte% 10.9 % (0-10); NRBC Flagged by Analyzer 0 % (0-5); Neutrophil # 4.25 X10^3/uL (2.7-7.7); Neutrophil % 59.7 % (47-70); Platelet Count 241 K/mm3 (150-450); RBC Distribution Width CV 13.9 % (11.6-14.6); RBC Distribution Width SD 48.3 fl (35.1-43.9); Red Blood Count 4.22 M/mm3 (4.2-5.4); White Blood Count 7.1 K/mm3 (4.4-11.0)
[2023-02-25 09:26] LABS: Anion Gap 4 (5-15); BUN 15 mg/dL (7-18); BUN/Creat Ratio 26.5 RATIO (10-20); Calcium,Total 8.2 mg/dL (8.5-10.1); Chloride 110 mmol/L (98-107); Creatinine, Serum 0.57 mg/dL (0.55-1.02); EST Glomerular Filtration Rate 108 mL/min (>60); Est Glom Filt Rate - Afr Amer 131 mL/min (>60); Glucose 80 mg/dL (74-106); Potassium 3.9 mmol/L (3.5-5.1); Sodium Level 140 mmol/L (136-145)
[2023-02-25 09:40] LABS: International Normalized Ratio 2.5; Prothrombin Time (Protime)PT. 27.4 SECONDS (11.7-14.9)
== END ==
LOC: OLS.ACH 04:00
PROVIDERS: PCP Family Medicine; Referring Provider Internal Medicine; Visit Provider Internal Medicine
DX: I82.5Y2 Chronic embolism and thrombosis of unspecified deep veins of left proximal lower extremity (principal); F03.90 Unspecified dementia, unspecified severity, without behavioral disturbance, psychotic disturbance, mood disturbance, and anxiety; I10 Essential (primary) hypertension; D51.0 Vitamin B12 deficiency anemia due to intrinsic factor deficiency
CPT/HCPCS: 36415; 80048; 85025; 85610

== ENCOUNTER → 2023-03-29 | Outpatient (REF) | payer MEDICARE, MEDICAID, SELFPAY ==
[2023-03-29 08:45] LABS: INR Fingerstick 2.1; Prothrombin Time Fingerstick 22.9 SEC (11.7-14.9)
== END ==
LOC: OLS.ACH 04:00
PROVIDERS: PCP Family Medicine; Referring Provider Internal Medicine; Visit Provider Internal Medicine
DX: I82.5Y2 Chronic embolism and thrombosis of unspecified deep veins of left proximal lower extremity (principal)
CPT/HCPCS: 36416; 85610

== ENCOUNTER → 2023-04-26 | Outpatient (REF) | payer MEDICARE, MEDICAID, SELFPAY ==
[2023-04-26 09:43] LABS: Prothrombin Time Fingerstick 21.7 SEC (11.7-14.9)
== END ==
LOC: OLS.ACH 04:00
PROVIDERS: PCP Family Medicine; Referring Provider Internal Medicine; Visit Provider Internal Medicine
DX: I82.5Y2 Chronic embolism and thrombosis of unspecified deep veins of left proximal lower extremity (principal)
CPT/HCPCS: 36416; 85610

== ENCOUNTER → 2023-05-20 | Outpatient (REF) | payer MEDICARE, MEDICAID, SELFPAY ==
[2023-05-20 07:41] LABS: Absolute Lymphocyte Count 1.99 X10^3/uL (0.83-4.51); Absolute Neutrophil Count 4.4 X10^3/uL (2.0-7.7); Basophil# 0.05 X10^3/uL; Basophil% 0.7 % (0-1); Eosinophil# 0.13 X10^3/uL; Eosinophils% 1.7 % (0-5); Hematocrit 42.1 % (37-47); Hemoglobin 13.2 g/dL (12.0-15.0); Lymphocyte # 1.99 X10^3/ul (0.83-4.51); Lymphocyte % 26.2 % (19-41); Mean Corp Hgb Conc 31.4 g/dL (32-36); Mean Corpuscular Hgb 29.1 pg (27.0-32.0); Mean Corpuscular Volume 92.7 fL (81-99); Mean Platelet Vol. 11.2 fl (6.2-12.0); Monocyte# 0.95 X10^3/uL; Monocyte% 12.5 % (0-10); NRBC Flagged by Analyzer 0 % (0-5); Neutrophil # 4.43 X10^3/uL (2.7-7.7); Neutrophil % 58.4 % (47-70); Platelet Count 247 K/mm3 (150-450); RBC Distribution Width SD 47.8 fl (35.1-43.9); Red Blood Count 4.54 M/mm3 (4.2-5.4); White Blood Count 7.6 K/mm3 (4.4-11.0)
[2023-05-20 07:58] LABS: Anion Gap 1 (5-15); BUN 14 mg/dL (7-18); Calcium,Total 8.6 mg/dL (8.5-10.1); Chloride 107 mmol/L (98-107); Creatinine, Serum 0.58 mg/dL (0.55-1.02); EST Glomerular Filtration Rate 105 mL/min (>60); Est Glom Filt Rate - Afr Amer 127 mL/min (>60); Glucose 79 mg/dL (74-106); Potassium 4.1 mmol/L (3.5-5.1); Sodium Level 138 mmol/L (136-145)
== END ==
LOC: OLS.ACH 05:00
PROVIDERS: PCP Family Medicine; Visit Provider Internal Medicine
DX: G30.9 Alzheimer's disease, unspecified (principal); I10 Essential (primary) hypertension
CPT/HCPCS: 36415; 80048; 85025

== ENCOUNTER → 2023-05-24 | Outpatient (REF) | payer MEDICARE, MEDICAID, SELFPAY ==
[2023-05-24 08:10] LABS: INR Fingerstick 2.8; Prothrombin Time Fingerstick 29.8 SEC (11.7-14.9)
== END ==
LOC: OLS.ACH 05:00
PROVIDERS: PCP Family Medicine; Visit Provider Internal Medicine
DX: I82.5Y2 Chronic embolism and thrombosis of unspecified deep veins of left proximal lower extremity (principal)
CPT/HCPCS: 36416; 85610

== ENCOUNTER → 2023-06-22 | Outpatient (REF) | payer MEDICARE, MEDICAID, SELFPAY ==
--- OUTSIDE RECORDS SUMMARY | 2023-06-22 04:32 | XMS RPT_ITS | CCD ---
Author Name Unknown Address [address] [place] [address] Organization [facility] Care Team Providers Care Nursing Techn Name Role Phone KENIA YANEZ Unavailable Unavailable [facility] Unavailable Unavailable Joseluis Ardon Unavailable Unavailable Joseluis Ardon Primary Care Provider Joseluis Ardon DO Primary Care Provider Medications Current Medications Medication Drug Class(es) Dates Sig (Normalized) Sig (Original) Acetaminophen (1 source) Start: 09-23-2019 acetaminophen (TYLENOL) tablet 650 mg acetaminophen 325 mg / HYDROcodone bitartrate 5 mg oral tablet (1 source) Opioid Agonist Start: 07-27-2019 End: 08-03-2019 take 1 tablet by mouth every six hours as needed for pain, then take 1 tablet by mouth as needed for pain HYDROcodone-acetami nophen (NORCO) 5-325 MG per tablet Indications: Lumbar contusion, initial encounter Take 1 tablet by mouth every 6 hours as needed for Pain for up to 7 days. Intended supply: 7 days. Take lowest dose possible to manage pain 28 tablet 0 07/27/2019 08/03/2019 Active alendronic acid 70 mg oral tablet (2 sources) Bisphosphonate Start: 06-01-2019 alendronate (FOSAMAX) 70 MG tablet Take 1 tablet by mouth every 7 days One tablet weekly 12 tablet 1 06/01/2019 Active cholecalciferol 400 unt oral tablet (2 sources) Vitamin D Start: 11-27-2015 take 1 tablet by mouth twice daily vitamin D3 (COLECALCIFEROL) 400 UNITS TABS tablet Take 1 tablet by mouth 2 times daily 30 tablet 0 11/27/2015 Active donepezil hydrochloride 5 mg oral tablet (4 sources) Start: 09-23-2019 take 5 mg by mouth once daily 5 mg, Oral, NIGHTLY, First dose on 09/23/19 at 2100 Completed/Discontinued Medications Medication Drug Class(es) Dates Sig (Normalized) Sig (Original) aspirin 325 mg oral tablet (3 sources) Platelet Aggregation Inhibitor, Nonsteroidal Anti-inflammatory Drug Start: 09-23-2019 End: 09-23-2019 aspirin tablet 325 mg Problems Active Problems Problem Classification Problem Date Documented Da te Episodic/Chronic Acute and unspecified renal failure (2 sources) Acute renal failure syndrome; Translations: [Acute renal failure, unspecified acute renal failure type (HCC)] Onset: 09-23-2019 09-23-2019 Episodic Acute and unspecified renal failure (2 sources) Acute injury of kidney; Translations: [RICHARD (acute kidney injury)] Onset: 09-23-2019 09-23-2019 Delirium, dementia amnestic and other cognitive disorders (7 sources) Dementia in other diseases classified elsewhere without behavioral disturbance; Translations: [Alzheimer's disease] Onset: 06-21-2014 Resolved: 11-27-2016 05-28-2016 Chronic Diseases of white blood cells (1 source) Leukocytosis; Translations: [Leukocytosis, unspecified type] Chronic Disorders of lipid metabolism (3 sources) Hypercholesterolem ia; Translations: [Hypercholesteremi a] 05-28-2016 Chronic E Codes: Fall (1 source) Fall Essential hypertension (3 sources) Essential hypertension; Translations: [Essential hypertension] Onset: 06-21-2003 02-14-2018 Chronic Fluid and electrolyte disorders (1 source) Hypokalemia; Translations: [Hypokalemia] Episodic Other bone disease and musculoskeletal deformities (3 sources) Osteopenia; Translations: [Osteopenia] 05-28-2016 Episodic Other non-traumatic joint disorders (3 sources) Thoracic arthritis; Translations: [Degenerative joint disease of thoracic spine] 05-28-2016 Chronic Residual codes; unclassified (1 source) Altered mental status; Translations: [Altered mental status, unspecified altered mental status type] Episodic Residual codes; unclassified (3 sources) FH: Diabetes mellitus; Translations: [Family history of diabetes mellitus] 05-28-2016 Episodic Unclassified (1 source) Unknown / UNK(Unknown) Onset: 03-14-2018 Past or Other Problems Problem Classification Problem Date Documented Da te Episodic/Chronic Fracture of upper limb (3 sources) Closed fracture of upper end of humerus; Translations: [Closed fracture of proximal end of right humerus with routine healing] Onset: 12-08-2018 Resolved: 09-22-2019 09-22-2019 Episodic Other circulatory disease (3 sources) Carotid bruit; Translations: [Right carotid bruit] Onset: 05-28-2016 05-28-2016 Episodic Other hereditary and degenerative nervous system conditions (3 sources) Mild cognitive disorder ; Translations: [Mild cognitive disorder] Onset: 11-27-2015 Resolved: 05-28-2016 05-28-2016 Chronic Other injuries and conditions due to external causes (1 source) Closed injury of head Episodic Superficial injury; contusion (2 sources) Contusion of lower back; Translations: [Contusion of hip] Episodic Results Test Name Value Interpretation Reference Range Facil ity Vital Signs Date Time Vital Sign Value Performing Clinician Erich meraz 09-26-2019 08:19-0400 Body Temperature 97.9 [degF] [facility] [place] 09-26-2019 08:19-0400 BP Diastolic 71 mm[Hg] [facility] , [place] 09-26-2019 08:19-0400 BP Systolic 136 mm[Hg] [place], [place] 09-26-2019 08:19-0400 Pulse (Heart Rate) 74 /min [facility], [place] 09-26-2019 08:19-0400 Pulse Oximetry 99 % [place], [place] 09-26-2019 08:19-0400 Respiratory Rate 16 /min [facility], [place] 09-23-2019 19:45-0400 BMI (Body Mass Index) 23.3 kg/m2 [facility] [place] 09-23-2019 19:45-0400 Body weight 63.5 kg [facility] , [place] 09-23-2019 19:45-0400 Height 165.1 cm [facility] , [place] 07-11-2019 23:05-0500 Diastolic blood pressure 72 mm[Hg] Jeff Millan MD Work Phone: [facility] Work Phone: 07-11-2019 23:05-0500 Heart rate 70 /min Jeff Millan MD [facility] Phone: [facility] Work Phone: 07-11-2019 23:05-0500 Respiratory rate 16 /min Jeff Millan MD Work Phone: [facility] Work Phone: 07-11-2019 23:05-0500 SaO2% (BldA) [Mass fraction] 100 % Jeff Millan MD Work Phone: [facility] Work Phone: 07-11-2019 23:05-0500 Systolic blood pressure 174 mm[Hg] [facility] Work Phone: 07-11-2019 20:55-0500 Body temperature 97.9 [degF] Jeff Millan MD Work Phone: [facility] Work Phone: Encounters Encounter Date Encounter Type Care Provider Facility Start: 09-23-2019 End: 09-26-2019 Evaluation and management of inpatient Darion Hugo Murray Work Phone: [facility] Procedures Date Procedure Procedure Detail Performing Clinician Start: 09-26-2019 Renal function panel Ld Everett Work Phone: Start: 09-25-2019 Gluc bld gluc mntr d ev cleared fda spec home use Rachel Everett Work Phone: Start: 09-25-2019 DRIVERS LICENSE EXAMINER SWALLOWING-DYSPH AGIA EVALUATION & TREATMENT Rachel Everett Work Phone: Start: 09-25-2019 Blood count complete automated Rachel Everett Work Phone: Start: 09-25-2019 Renal function panel Ld Everett Work Phone: Start: 09-24-2019 Culture bacterial quanttative colony count urine Rachel Everett Work Phone: Start: 09-24-2019 Assay of urine sodium Karolina Felder Work Phone: Start: 09-24-2019 Creatinine other source Devin Felder Work Phone: Start: 09-24-2019 Blood count complete automated Rachel Everett Work Phone: Start: 09-24-2019 Renal function panel Ld Everett Work Phone: Start: 09-23-2019 Assay of lactate Ravinder Pardo Work Phone: Start: 09-23-2019 Assay of troponin quantitative Ravinder Pardo Work Phone: Start: 09-23-2019 Basic metabolic pane l calcium total Ravinder Pardo Work Phone: Start: 09-23-2019 Ct abdomen & pelvis w/o contrast material Darion [facility] Work Phone: Start: 09-23-2019 Ct head/brain w/o co ntrast material Darion [facility] Work Phone: Start: 09-23-2019 Ecg routine ecg w/le ast 12 lds w/i&r Darion [facility] Work Phone: Start: 09-23-2019 Assay of lactate Darionmiles Romano rosetta [place] Work Phone: Start: 09-23-2019 Assay of magnesium Darion Hugo [place] Work Phone: Start: 09-23-2019 Assay of thyroid stimulating hormone tsh Darion [facility] Work Phone: Start: 09-23-2019 Assay of troponin quantitative Darion [facility] Work Phone: Start: 09-23-2019 Blood count complete auto&auto difrntl wbc Darion [facility] Work Phone: Start: 09-23-2019 Comprehensive metabo lic panel Darion Hugo [place] Work Phone: Start: 09-23-2019 Culture bacterial quanttative colony count urine Darion Hugo [place] Work Phone: Start: 09-23-2019 Urnls dip stick/tabl et rgnt auto w/o microscopy Darion Hugo [place] Work Phone: Start: 09-23-2019 Radiologic exam ches t single view Darion Hugo Murray Work Phone: Start: 07-27-2019 Radex spine lumbosac ral minimum 4 views Joseluis Ardon Work Phone: Start: 07-11-2019 Radex hip unilateral with pelvis 2-3 views Jeff Millan MD Work Phone: Start: 07-11-2019 Ct cervical spine w/ o contrast material Jeff Millan MD Work Phone: Start: 07-11-2019 Ct head/brain w/o co ntrast material Jeff Millan MD Work Phone: Plan of Treatment Date Care Activity Detail Author Start: 09-25-2020 Creatinine monitoring Creatinine mon [place], [place] Start: 09-25-2020 Potassium monitoring Potassium monit [place], [place] Start: 06-01-2020 [facility] Start: 06-01-2020 Lipid screen Lipid screen [facility] Work Phone: Start: 06-01-2020 Potassium monitoring Potassium monit oring [facility] Work Phone: Start: 12-01-2019 End: 12-01-2019 Office Visit 12/01/2019 Office Visit Family Medicine Joseluis Ardon, DO [address] [place] [address] [facility] Start: 12-08-2018 Annual Wellness Visi t (AWV) Annual Wellness Visit (AWV) [facility] Work Phone: Start: 1989 Shingles Vaccine (1 of 2) Shingles Vaccine (1 of 2) [facility] Work Phone: Start: 1958 DTaP/Tdap/Td vaccine (1 - Tdap) DTaP/Tdap/Td vaccine (1 - Tdap) [place], [place] Start: 1950 DTaP/Tdap/Td vaccine (1 - Tdap) DTaP/Tdap/Td vaccine (1 - Tdap) [facility] Work Phone: End: 09-28-2019 CBC CBC Lab Routine Daily for 5 Occurrences starting 09/24/2019 until 09/28/2019, 2 completed [place], [place] Immunizations Immunization Date Immunization Notes Care Provider Fa venkata 06-01-2019 influenza, high dose seasonal, preservative-free Jeff Millan MD Work Phone: [facility] Work Phone: 06-01-2018 influenza, high dose seasonal, preservative-free Jeff Millan MD Work Phone: [facility] Work Phone: 05-28-2017 influenza, high dose seasonal, preservative-free Jeff Millan MD Work Phone: [facility] Work Phone: 05-28-2016 influenza, injectabl e, quadrivalent, contains preservative Jeff Millan MD Work Phone: [facility] Work Phone: 05-28-2016 pneumococcal polysaccharide vaccine, 23 valent Jeff Millan MD Work Phone: [facility] Work Phone: 05-06-2015 influenza virus vacc ine, unspecified formulation Jeff Millan MD Work Phone: [facility] Work Phone: 05-06-2015 pneumococcal conjuga te vaccine, 13 valent Jeff Millan MD Work Phone: [facility] Work Phone: Payers Date Payer Category Payer Unknown [employer] [address] xxxxxxxxxxxx 2018-Present [phone] [address] [place] [address] xxxxxxxxxxxx [id number] 2015 Medicare MEDICARE MEDICAR E PART A AND B xxxxxxxxxxx 2015-Present [phone] [place] [address] xxxxxxxxxxx [id number] Medicare [id number] Social History Date Type Detail Facility Start: 07-11-2019 End: 09-24-2019 Tobacco smoking status NHIS Never smoker [facility] Work Phone: Start: 07-11-2019 End: 09-24-2019 Alcohol intake Current non-drinker of alcohol (finding) [facility] Work Phone: Start: 11-30-2018 History SDOH Alcohol Frequency 1 [facility] Work Phone: Sex Assigned At Not on file [facility] Work Phone: Exposure to SARS-CoV -2 (event) Unable to assess [place], [place] Goals Date Patient Goal Desired Activity /State Evaluation note Note Date & Type Note Facility documented in this encounter [facility] Work Phone: Hospital Discharge instructions Attachments Note Date & Type Note Facility Hospital Discharge instructions The following attachments cannot be sent through Care Everywhere.Head Injury: Closed: General Info (Belarusian)Fall Prevention (Belarusian)Contusion (Belarusian)documented in this encounter [facility] Work Phone: Summary Purpose Family History No Family History Records FoundNo Family History Records FoundNo Family History Records FoundNo Family History Records Found Advance Directives No Advanced Directives Records FoundDocuments on File Type Date Recorded Patient Instrument Installer Expl anation Advance Directives and Living Will Power of Spring Up Supervisor Power of Spring Up Supervisor 09/07/2019 4:24 PM durable Latest Code Status on File Code Status Date Activated Date Inactivated Comments Full Code 09/23/2019 7:47 PM Full Code 02/10/2016 6:10 AM 02/10/2016 11:23 AM Documents on File Type Date Recorded Patient Instrument Installer Expl anation Advance Directives and Living Will Power of Spring Up Supervisor Latest Code Status on File Code Status Date Activated Date Inactivated Comments Full Code 02/10/2016 6:10 AM 02/10/2016 11:23 AM Discharge Instructions * Pharmacy* Radha Jurado RPH - 09/25/2019 9:49 AM EDT * Discharge Instr - [facility]* Nesha Booth, RN - 09/25/2019 10:52 AM EDT Continuity of Care Form Patient Name: Maria Antonia Youssef : 1940 Admit date: 09/23/2019 Discharge date: Code Status Order: Full Code Advance Directives: Advance Care Flowsheet Documentation Date/Time Healthcare Directive Type of Healthcare Directive Copy in Chart Healthcare Agent Appointed Healthcare Agent's Name Healthcare Agent's Phone Number 09/23/19 [phone] No, patient does not have an advance directive for healthcare treatment -- -- -- -- -- Admitting Physician: Rachel Everett MD PCP: Joseluis Ardon DO Discharging Nurse: Discharging Hospital Unit/Room#: 465/4615 Discharging Unit Phone Number: Emergency Contact: Extended Emergency Contact Information Primary Emergency Contact: Adalberto Youssef [facility] Relation: Spouse Secondary Emergency Contact: Fátima Gómez [facility] Relation: Child Past Surgical History: Past Surgical History: Procedure Laterality Date COLONOSCOPY 2010 Yao COLONOSCOPY 02/10/2016 Turowski- neg- ? 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 Family history of diabetes mellitus Z83.3 Right carotid bruit R09.89 Alzheimer's dementia without behavioral disturbance ([facility]) G30.9, F02.80 Essential hypertension I10 RICHARD (acute kidney injury) ([facility]) N17.9 Acute renal failure (ARF) ([facility]) N17.9 Isolation/Infection: Isolation No Isolation Patient Infection Status None to display Nurse Assessment: Last Vital Signs: BP (!) 140/86 Pulse 76 Temp 98.2 F (36.8 C) (Temporal) Resp 20 Ht 5' 5 (1.651 m) Wt 140 lb (63.5 kg) SpO2 97% BMI 23.30 kg/m Last documented pain score (0-10 scale): Pain Level: 0 Last Weight: Wt Readings from Last 1 Encounters: 09/23/19 140 lb (63.5 kg) Mental Status: disoriented, alert and able to concentrate and follow conversation IV Access: - None Nursing Mobility/ADLs: Walking Assisted Transfer Assisted Bathing Dependent Dressing Dependent Toileting Dependent Feeding Dependent Fire Control Technician Dependent Med Delivery crushed Wound Care Documentation and Therapy: Elimination: Continence: Bowel: No Bladder: No Urinary Catheter: Insertion Date: 09/23/2019 Colostomy/Ileostomy/Ileal Conduit: No Date of Last BM: Intake/Output Summary (Last 24 hours) at 09/25/2019 1051 Last data filed at 09/25/2019 0538 Gross per 24 hour Intake 2788 ml Output 100 ml Net 2688 ml I/O last 3 completed shifts: In: 2788 [I.V.:2788] Out: 550 [Urine:550] Safety Concerns: At Risk for Falls Impairments/Disabilities: Vision Nutrition Therapy: Current Nutrition Therapy: - Oral Diet: Dysphagia 1 pureed Routes of Feeding: Oral Liquids: Thin Liquids Daily Fluid Restriction: no Last Modified Barium Swallow with Video (Video Swallowing Test): not done Treatments at the Time of Hospital Discharge: Respiratory Treatments: Oxygen Therapy: is not on home oxygen therapy. Ventilator: - No ventilator support Rehab Therapies: Physical Therapy and Occupational Therapy Weight Bearing Status/Restrictions: No weight bearing restirctions Other Medical Equipment (for information only, NOT a DME order): walker Other Treatments: Patient's personal belongings (please select all that are sent with patient): Dentures upper and lower RN SIGNATURE: CASE MANAGEMENT/SOCIAL WORK SECTION Inpatient Status Date: 09/23/2019 Readmission Risk Assessment Score: Readmission Risk Risk of Unplanned Readmission: 14 Discharging to Facility/ Agency Name: [facility] Address: [address] [place] [address] Dialysis Facility (if applicable) Name: Address: Dialysis Schedule: Phone: Fax: Supervisor [employer]/Hook Tender signature: PHYSICIAN SECTION Prognosis: Fair Condition at Discharge: Stable Rehab Potential (if transferring to Rehab): Fair Recommended Labs or Other Treatments After Discharge: CBC, BMP in one week, check BP daily, watch for raise, meds were stopped due to renal dysfunction Physician Certification: I certify the above information and transfer of Maria Antonia Youssef is necessary for the continuing treatment of the diagnosis listed and that she requires Detention Facility for less 30 days. Update Admission H&P: No change in H&P PHYSICIAN SIGNATURE: documented in this encounter History of Present Illness * Nesha Booth RN - 09/26/2019 1:07 PM EDT Report called to [facility] * Pavithra Davila, NORMAN - 09/26/2019 9:33 AM EDT Speech Language Pathology Facility/Department: [facility] TELEMETRY Dysphagia Treatment Note NAME: Maria Antonia Youssef : 1940 Patient Diagnosis(es): Patient Active Problem List Diagnosis Hypercholesteremia Osteopenia Degenerative joint disease of thoracic spine Family history of diabetes mellitus Right carotid bruit Alzheimer's dementia without behavioral disturbance (HCC) Essential hypertension RICHARD (acute kidney injury) (HCC) Acute renal failure (ARF) (HCC) Allergies: No Known Allergies O2 Device: None (Room air) Current Diet Level: Puree diet; low Na Compensatory Techniques []Chin tuck [x]Single bolus [x]Alternate bites/ sips [] External Pacing [x]Straws OK []Small diameter straw []Liquid wash []Swallow x 2 with each bolus []Effortful Swallow [] [x]Position patient upright []Upright After Meal at least 30 minutes Pain: Yes complains of pain with movement and gums sore. S: Pt was alert and oriented to self. You are spending too much time with me. O: Oral care education, assess diet tolerance. A: Pt was sleeping. Aroused easily. Pt continue with dentures in place. Removed with some resistance from the pt. That hurts. Gums inspected with some redness and questionable small ulcerations vs.Residual particles of food. Pt was resistant with oral care however excepted with gradual swabbing with diluted mouthwash. Teeth were heavily coated/impacted with food. Teeth were rinsed and placed in denture sanitation truck cleaner for soaking. Pt assisted with breakfast meal. Fed bites and cued drinks. Pt initiated self feeding with liquids. Initially pt would only accept 1/2 tsp bites of cream of wheat...gradually increasing to full teaspoon bites. She demonstrated oral holding vs delayed swallowing initiation. Cued liquid chaser and extra time was beneficial for swallowing onset and clearing. Mild oral residuals (buccal pocketing on left) with eggs, clearing with alternating cream of wheat and / or drink of ensure or milk. Increased acceptance after dentures removed and oral cavity clear. Continue removing teeth daily or after each meal for cleansing. [] Goal met [] Progressing as expected [] Progressing slower than expected [] Medical status inhibits participation [] Goals not addressed this session [] Goals revised this session [] Unable to show any progress towards functional goals [x] Progress towards functional goal is gradual / fair P: Continue puree diet, strategies of alternating liquids after solids to clear oral cavity. Encourage self feeding. Pt does follow some cues as well as physical prompts. Total Minutes: 43 minutes Pavithra Davila M.A.CCC/DRIVERS LICENSE EXAMINER Speech-Language Pathologist * Emily Higgins, PT - 09/25/2019 1:39 PM EDT Physical Therapy Facility/Department: [facility] Daily Treatment Note NAME: Maria Antonia Youssef : 1940 Date of Service: 09/25/2019 Discharge Recommendations: Subacute/Detention Facility Assessment Assessment: Pt agreeable to exercises in bed this date with need for 25% assist from therapist for all exercises completed. Pt fatigues easily and was closing eyes end of session. Pt completed OT prior to this session, therefore bed mobility not attempted due to fatigue Pt could benefit from continued PT in order to progress mobility and strength. PT Education: Goals;PT Role;Plan of Care REQUIRES PT FOLLOW UP: Yes Activity Tolerance Activity Tolerance: Patient limited by cognitive status;Patient limited by fatigue;Patient limited by endurance Patient Diagnosis(es): The primary encounter diagnosis was Hypokalemia. Diagnoses of Acute renal failure, unspecified acute renal failure type (HCC), Altered mental status, unspecified altered mentalstatus type, and Leukocytosis, unspecified type were also pertinent to this visit. has a past medical history of Alzheimer's dementia without behavioral disturbance (HCC), Breast cancer screening, Degenerative joint disease of thoracic spine, Essential hypertension, Family history of diabetes mellitus, H/O colonoscopy, History of compression fracture of spine, Hypercholesteremia, Osteopenia, and Right carotid bruit. has a past surgical history that includes Ovary removal; Colonoscopy (2010); and Colonoscopy (02/10/2016). Restrictions Restrictions/Precautions Restrictions/Precautions: Fall Risk, General Precautions(Dementia, bed alarm) Required Braces or Orthoses?: No Subjective General Chart Reviewed: Yes Family / Caregiver Present: No Subjective Subjective: Pt pleasantly confused and agreeable to PT. Pt just completed OT and is agreeable to bed exercises. General Comment Comments: Per RN patient okay for therapy. Pain Screening Patient Currently in Pain: Denies Vital Signs Patient Currently in Pain: Denies Objective Exercises Straight Leg Raise: 1 set / 10 reps R and L LE separately Heelslides: 1 set / 10 reps R and L LE separately Hip Abduction: 1 set / 10 reps R and L LE separately Knee Short Arc Quad: 1 set / 10 reps R and L LE separately Ankle Pumps: 1 set / 10 reps R and L LE separately Comments: Pt requires AAROM throughout all exercises with persistent 1 step commands to improve participation and attention to task. Pt demonstrates ~75% effort B LE consistently. Pt fatigues easily requiring rest breaks and additional cues for initiation and attend to task. Goals Short term goals Time Frame for Short term goals: 4 visits Short term goal 1: Perform AAROM/PROM BLE 2sets/15reps to improve function(partially met) Short term goal 2: Patient to improve bed moblity supine-sit mod/max assist(N/A) Short term goal 3: Patient to improve sit-stand with mod assist(N/A) Short term goal 4: Patient to improve sitting balance fair-(N/A) Patient Goals Patient goals : unable Plan Plan Times per week: 4 visits Times per day: Daily Current Treatment Recommendations: Strengthening, Functional Mobility Training, Transfer Training, Gait Training, Balance Training, Endurance Training, Patient/Caregiver Education & Training, Safety Education & Training, Neuromuscular Re-education, Positioning, Cognitive Reorientation, Cogni tive/Perceptual Training Plan Comment: Goals and/or treatment plan were estabished in collaboration with patient. Safety Devices Type of devices: All fall risk precautions in place, Call light within reach, Left in bed, Nurse notified, Bed alarm in place, Patient at risk for falls Therapy Time Individual Concurrent Group Co-treatment Time In 1018 Time Out 1031 Minutes 13 Timed Code Treatment Minutes: 10 Minutes(therex x 1) Emily Higgins PT * Rachel Everett MD - 09/25/2019 1:31 PM EDT Hospitalist Progress Note 09/25/2019 1:31 PM [id number]: Please page me @ [phone] for patient care issues. [phone]: Please page [facility] night Hospitalist for any issues. Subjective: Admit Date: 09/23/2019 PCP: Joseluis Ardon, DO Not much appetite, appears weak, denies chest pain, cough, sob, abdominal pain, nausea, vomiting, diarrhea, constipation, fevers, or chills. Dietary Nutrition Supplements: Low Volume Supplement DIET LOW SODIUM 2 GM; Dysphagia Pureed Patient Vitals for the past 96 hrs (Last 3 readings): Weight 09/23/19 1945 140 lb (63.5 kg) Medications: dextrose 5% and 0.45% NaCl with KCl 20 mEq donepezil 5 mg Oral Nightly melatonin 3 mg Oral Nightly memantine 10 mg Oral BID sodium chloride flush 10 mL Intravenous 2 times per day LABS: CBC: Recent Labs 09/23/19125009/24/1943809/25/19511 WBC 16.7* 13.4* 12.1* RBC 4.37 3.96 3.85 HGB 12.8 11.5* 11.3* HCT 39.0 35.5 34.6* MCV 89.2 89.6 90.0 RDW 14.0 14.3 13.9 PLT 183 161 175 BMP: Recent Labs 09/23/19213509/24/1943809/25/19511 NA 147* 144 141 K 3.0* 3.8 4.2 CL 106 110* 111* CO2 29 28 23 BUN 73* 66* 48* CREATININE 2.13* 1.54* 0.80 GLUCOSE 108* 140* 110* CALCIUM 9.1 8.6 8.9 ANIONGAP 11 7 7 LIVER PROFILE: Recent Labs 09/23/19125009/24/1943809/25/19511 AST 30 -- -- ALT 19 -- -- BILITOT 0.5 -- -- ALKPHOS 106 -- -- LABALBU 3.6 3.1* 3.2* PROT 7.0 -- -- PT/INR: No results for input(s): PROTIME, INR in the last 72 hours. CARDIAC ENZYMES: Recent Labs 09/23/19125009/23/192135 TROPONINI 0.044* 0.026 Procalcitonin: No results found for: PROCAL Objective: Vitals: BP (!) 140/86 Pulse 76 Temp 98.2 F (36.8 C) (Temporal) Resp 20 Ht 5' 5 (1.651 m) Wt 140 lb (63.5 kg) SpO2 97% BMI 23.30 kg/m Pulse Ox: SpO2 Av.7 % Min: 96 % Max: 97 % Supplemental O2: General appearance: Appears weak, alert and oriented times two No apparent distress, appears stated age and cooperative with exam HEENT: Normal cephalic, atraumatic without obvious deformity. Pupils equal, round, and reactive to light. Extra ocular muscles intact. Conjunctivae/corneas clear. Neck: Supple, with full range of motion. No jugular venous distention. Trachea midline. No lymphadenopathy. Respiratory: Normal respiratory effort. Clear to auscultation, bilaterally without Rales/Wheezes/Rhonchi. Cardiovascular: Regular rate and rhythm with normal S1/S2 without murmurs, rubs or gallops. Abdomen: Soft, mild diffuse tenderness Musculoskeletal: No clubbing, cyanosis or edema bilaterally. Full range of motion without deformity. Skin: Skin color, texture, turgor normal. No rashes or lesions. Neurologic: Neurovascularly intact without any focal sensory/motor deficits. Cranial nerves: II-XIIintact, grossly non-focal. Assessment # Acute kidney injury due to ATN - BP meds held, on IVF, nephrology on board, corrected # Urinary incontinence with smell in the urine, done with abx, per ID stewardship recommendations # A.dementia - on meds Plan : continue IVF, speech eval All test and lab results reviewed Consult notes reviewed Am labs, replace lytes prn PT/OT Advance care planning has been discussed, total time spent is greater than 30 mins, transfer to [facility]. -DVT prophylaxis: [] Lovenox [] Heparin [] SCDs [x] Encourage ambulation [] Already on Anticoagulation Advance Directive: Full Code Discharge planning: TBD RACHEL EVERETT MD, MD Division of Hospitalist Medicine Inpatient Medical Services This report was created using the [employer] Speaking voice- activated system. Despiteprompt dictation and careful editorial review, there may be subtle contextual errors in this report, due to misrecognition of the spoken word. * Pavithra Davila, NORMAN - 09/25/2019 11:47 AM EDT Speech Language Pathology Facility/Department: [facility] TELEMETRY CLINICAL BEDSIDE SWALLOW EVALUATION NAME: Maria Antonia Youssef : 1940 ADMISSION DATE: 09/23/2019 ADMITTING DIAGNOSIS: has Hypercholesteremia; Osteopenia; Degenerative joint disease of thoracic spine; Family history of diabetes mellitus; Right carotid bruit; Alzheimer's dementia without behavioral disturbance (HCC); Essential hypertension; RICHARD (acute kidney injury) ([facility]); and Acute renal failure (ARF) ([facility]) on their problem list. ONSET DATE: 09/23/2019 Recent Chest Xray/CT of Chest: 09/23/2019 The trachea is midline. There is aortic atherosclerosis. The mediastinal and cardiac silhouette are normal. The pulmonary vasculature is within normal limits. The right hemidiaphragm is elevated. No confluent infiltrates, pleural effusion or pneumothorax is seen. There are degenerative changes of the thoracic spine and shoulders. There is deformity of the right shoulder presumably related to remote trauma. Date of Eval: 09/25/2019 Evaluating Therapist: Pavithra Davila Current Diet level: Current Diet : Regular(2 gram sodium) Current Liquid Diet : Thin Primary Complaint Patient Complaint: Pt with poor po 3-4 days prior to admission. Pt admitted with RICHARD, hypokalemia, hpernatrium, uremia, UTI. Pain: Pain Assessment Pain Assessment: 0-10 Pain Level: 0 Pain Assessment/FLACC Pain Rating: FLACC (rest) - Face: occasional grimace or frown, withdrawn, disinterested Pain Rating: FLACC (rest) - Legs: uneasy, restless, tense Pain Rating: FLACC (rest) - Activity: squirming, shifting back and forth, tense Pain Rating: FLACC (rest) - Cry: moans or whimpers, occasional complaint Pain Rating: FLACC (rest) - Consolability: reassured by occasional touch, hug or being talked to(repositioned) Score: FLACC (rest): 5 Reason for Referral Maria Antonia Youssef was referred for a bedside swallow evaluation to assess the efficiency of her swallow function, identify signs and symptoms of aspiration and make recommendations regarding safe dietary consistencies, effective compensatory strategies, and safe eating environment. Impression Dysphagia Impression : Recommend puree diet d/t pt refused to swallow. Will further investigate oral integrity. Pt may have sores under her dentures as they appear to require cleaning. Tight/stiff laryngeal musculature with decreased range of motion. Treatment Plan Requires DRIVERS LICENSE EXAMINER Intervention: Yes Duration/Frequency of Treatment: 4 visits Recommended Diet and Intervention Diet Solids Recommendation: Dysphagia Pureed (Dysphagia I) Liquid Consistency Recommendation: Thin Recommended Form of Meds: PO Therapeutic Interventions: Patient/Family education;Diet tolerance monitoring Compensatory Swallowing Strategies Compensatory Swallowing Strategies: Small bites/sips;Alternate solids and liquids Treatment/Goals Short-term Goals Timeframe for Short-term Goals: 4 visits Goal 1: Pt will consume puree diet with liquid chaser and encouargement as necessary for nutritional support. Goal 2: DRIVERS LICENSE EXAMINER to further evaluate oral integritiy. Goal 3: Pt with improve musculature ROM (manible, lingual, extrinsic laryngeal muscles) to ability to mange oral diet. General Chart Reviewed: Yes Behavior/Cognition: Alert;Confused;Agitated;Requires cueing O2 Device: None (Room air) Follows Directions: Simple Dentition: Dentures bottom;Dentures top Patient Positioning: Upright in bed Baseline Vocal Quality: Normal Volitional Cough: Strong Prior Dysphagia History: none Consistencies Administered: Dysphagia Soft and Bite-Sized (Dysphagia III);Dysphagia Pureed (Dysphagia I);Thin - cup;Thin - straw Vision/Hearing Vision Vision: Impaired Vision Exceptions: Wears glasses at all times(didnt have glasses on) Hearing Hearing: Within functional limits Oral Motor Deficits Oral/Motor Oral Motor: Exceptions to WFL(limited participation in the oral exam, limited mouth opening, would oral residuals.) Labial ROM: (limited) Mandible: Impaired(Reduced ROM, c/o pain right angle, slightly closer to ramus on the left side.) Oral Phase Dysfunction Oral Phase Oral Phase - Comment: Pt with anterior loss with drinks of liquids via cup. Slow but functional useof single straw. Pt took bite of muffin and would not chew, stating Ow with touch through TMJ, angle of mandible. Pt would not allow denture removal for cleaning. Oral care necessary with particlesthroughout. NO and she grabbed DRIVERS LICENSE EXAMINER's wrists. Indicators of Pharyngeal Phase Dysfunction Pharyngeal Phase Pharyngeal: +laryngeal elevation. she did not demonstrate significant overt deficits pharyngeally. Suspect delay in swallowing onset with resistance to chew and swallow. Decreased timeing of bolus control and swallow. +laryngeal elevations. Prognosis Prognosis Prognosis for safe diet advancement: fair Barriers to reach goals: cognitive deficits Barriers/Prognosis Comment: oral integrity was difficult to assess Individuals consulted Consulted and agree with results and recommendations: Patient Education Patient Education: Diet changes Patient Education Response: No evidence of learning Safety Devices in place: Yes Type of devices: Call light within reach Therapy Time [employer]IV[employer] LICENSE EXAMINER Individual Minutes Time In: 1050 Time Out: 1120 Minutes: 30 [place]MAN [place] 09/25/2019 11:47 AM * Rubi SanBRII - 09/25/2019 11:29 AM EDT Occupational Therapy Facility/Department: [facility] TELEMETRY Daily Treatment Note NAME: Maria Antonia Youssef : 1940 Date of Service: 09/25/2019 Discharge Recommendations: Subacute/Detention Facility Assessment Performance deficits / Impairments: Decreased functional mobility ;Decreased safe awareness;Decreased balance;Decreased ADL status;Decreased cognition;Decreased ROM;Decreased endurance;Decreased high-level IADLs;Decreased strength Assessment: Pt demonstrated decreased sitting balance during functional activity seated EOB. Pt required mod assist of ADLs and mod assist for bed mobility. Pt unable to initiate or sequence tasks without repeated one step commands. Pt fatigued with activity but was willing to attempt all tasks requested of her. Pt is expected to benefit from further acute OT skilled services to increased strength and independence for ADLs, bed mobilty and transfers. History: Pt's history significant for dementia. Detailed PMH is listed below. REQUIRES OT FOLLOW UP: Yes Activity Tolerance Activity Tolerance: Patient limited by fatigue;Patient limited by pain;Treatment limited secondary to decreased cognition Patient Diagnosis(es): The primary encounter diagnosis was Hypokalemia. Diagnoses of Acute renal failure, unspecified acute renal failure type (HCC), Altered mental status, unspecified altered mentalstatus type, and Leukocytosis, unspecified type were also pertinent to this visit. has a past medical history of Alzheimer's dementia without behavioral disturbance (HCC), Breast cancer screening, Degenerative joint disease of thoracic spine, Essential hypertension, Family history of diabetes mellitus, H/O colonoscopy, History of compression fracture of spine, Hypercholesteremia, Osteopenia, and Right carotid bruit. has a past surgical history that includes Ovary removal; Colonoscopy (2010); and Colonoscopy (02/10/2016). Restrictions Restrictions/Precautions Restrictions/Precautions: Fall Risk, General Precautions(DEMENTIA,BED ALARM) Required Braces or Orthoses?: No Subjective General Chart Reviewed: Yes Patient assessed for rehabilitation services?: Yes Family / Caregiver Present: No Subjective Subjective: Pt awake in bed upon approach and agreeable to therapy. Pt confused with conversation but very pleasant throughout session. Pt indicated pain with bed mobility and sitting EOb but unable to identify where or quantify. Pt required repeated one step commands to attempt ADL tasks and answered minimally during the session General Comment Comments: Nursing reports OK to treat. Orientation Orientation Overall Orientation Status: Impaired Orientation Level: Disoriented to situation;Disoriented to place;Disoriented to time;Oriented to person Objective ADL Grooming: Verbal cueing;Setup;Increased time to complete;Moderate assistance;Maximum assistance(to prepare toothbrush and wash cloth while seated EOB. Pt required min/mod assist to sit EOB to wash under arms and face) UE Bathing: Moderate assistance;Setup;Verbal cueing;Increased time to complete UE Dressing: Moderate assistance;Maximum assistance(Pt unable to identify sleeves of gown or assistto doff soiled gown. Pt confused with towel/gown and sheet on the bed and reached for all items without identifying a gown. ) Additional Comments: Pt sat EOB leaning heavily to the right throughout ADLs. Pt unable to sit upright c/o of pain when attempting upright posture. Pt required CGA to mod assist to stay seated safelyEOB. Balance Sitting Balance: Moderate assistance(to CGA during ADLs. Pt falls to the right and unable to identify leaning posture. ) Bed mobility Supine to Sit: Moderate assistance Sit to Supine: Moderate assistance Scooting: Maximal assistance Comment: Pt required cues to initiate bed mobility. Pt falls to the right during attempts to sit EOB. Pt used bed rail and bed-side table placed in front of her to attempt to support her sitting posture. Pt required mod assist to return to supine and max x2 to position in the middle of the bed/HOB. Cognition Overall Cognitive Status: Exceptions Arousal/Alertness: Inconsistent responses to stimuli Following Commands: Follows one step commands with increased time;Follows one step commands with repetition Attention Span: Attends with cues to redirect;Difficulty attending to directions;Difficulty dividing attention Memory: Decreased recall of biographical Information;Decreased medical terminologist memory;Decreased short term memory;Decreased recall of precautions;Decreased recall of recent events Safety Judgement: Decreased awareness of need for assistance Problem Solving: Decreased awareness of errors Insights: Decreased awareness of deficits Initiation: Does not require cues Sequencing: Requires cues for some Cognition Comment: Pt with hx of dementia. Plan Plan Times per week: 3 visits Times per day: Daily Current Treatment Recommendations: Strengthening, Endurance Training, Patient/Caregiver Education & Training, ROM, Equipment Evaluation, Education, & procurement, Cognitive Reorientation, Self-Care / ADL, Balance Training, Cognitive/Perceptual Training, Functional Mobility Training, Safety E ducation & Training Plan Comment: Goals and POC made in collaboration with pt. Goals Short term goals Time Frame for Short term goals: 4 visits Short term goal 1: Pt will complete self-feeding/grooming tasks with setup/SUPV progressing Short term goal 2: Pt will complete UB ADLs with MIN A progressing Short term goal 3: Pt will complete toileting at [facility] including transfer with MOD A not attempted Short term goal 4: Pt will participate in functional sitting tasks while seated EOB for >10 minutes with MIN A progressing Patient Goals Patient goals : Pt unable to state goals Therapy Time Individual Concurrent Group Co-treatment Time In 0950 Time Out 1015 Minutes 25 Timed Code Treatment Minutes: 25 Minutes BRII Fall/Ольга * Chely Ruiz MD - 09/25/2019 9:42 AM EDT [facility] Progress Note Subjective/ 79 y.o. year old female who we are seeing in consultation for RICHARD. Interval Hx: Seen and examined No acute events overnight Na is improving Lytes are stable BP is stable Still on IVF No CP, SOB ROS otherwise negative Objective/ Vitals: 09/24/19 0743 09/24/19 1456 09/24/19201209/25/19 0846 BP: (!) 134/104 (!) 145/82 (!) 147/101 (!) 140/86 Pulse: 108 77 88 76 Resp: 16 18 20 Temp: 98.3 F (36.8 C) 98.1 F (36.7 C) 98.2 F (36.8 C) TempSrc: Temporal Temporal Temporal Temporal SpO2: 96% 97% 97% Weight: Height: 24HR INTAKE/OUTPUT: Intake/Output Summary (Last 24 hours) at 09/25/2019 0942 Last data filed at 09/25/2019 0538 Gross per 24 hour Intake 2788 ml Output 550 ml Net 2238 ml Constitutional: NAD, cooperative, confused. Head: AT NC Neck: No JVD, no thyromegaly Cardiovascular: S1, S2 without m/r/g Respiratory: CTA B without w/r/r Abdomen: soft, nt Ext: NO b/l LE edema Current Facility-Administered Medications Medication Dose Route Frequency Provider Last Rate Last Dose cefTRIAXone sodium 1 g in sodium chloride 0.9 % 100 mL IVPB (add-vantage) 1 g Intravenous Q24H Rachel Everett MD 0 mL/hr at 09/24/19 1114 1 g at 09/25/19 0843 donepezil (ARICEPT) tablet 5 mg 5 mg Oral Nightly Rachel Everett MD 5 mg at 09/24/191956 melatonin tablet 3 mg 3 mg Oral Nightly Rachel Everett MD 3 mg at 09/24/191956 memantine (NAMENDA) tablet 10 mg 10 mg Oral BID Rachel Everett MD 10 mg at 09/25/19 0856 sodium chloride flush 0.9 % injection 10 mL 10 mL Intravenous 2 times per day Rachel Everett MD 10 mL at 09/25/19 0843 sodium chloride flush 0.9 % injection 10 mL 10 mL Intravenous PRN Rachel Everett MD acetaminophen (TYLENOL) tablet 650 mg 650 mg Oral Q6H PRN Rachel Everett MD Or acetaminophen (TYLENOL) suppository 650 mg 650 mg Rectal Q6H PRN Rachel Everett MD promethazine (PHENERGAN) tablet 12.5 mg 12.5 mg Oral Q6H PRN Rachel Everett MD Or ondansetron (ZOFRAN) injection 4 mg 4 mg Intravenous Q6H PRN Rachel Everett MD dextrose 5 % and 0.45 % NaCl with KCl 40 mEq infusion Intravenous Continuous Devin Felder MD 75mL/hr at 09/25/19 0152 dextrose 5% and 0.45% NaCl with KCl 40 mEq 75 mL/hr at 09/25/19 0152 Data/ Recent Labs 09/23/19 1251 09/24/19 0439 09/25/19 0512 WBC 16.7* 13.4* 12.1* HGB 12.8 11.5* 11.3* HCT 39.0 35.5 34.6* MCV 89.2 89.6 90.0 PLT 183 161 175 Recent Labs 09/23/19 1251 09/23/19 2136 09/24/19 0439 09/25/19 0512 NA 147* 147* 144 141 K 2.9* 3.0* 3.8 4.2 CL 106 106 110* 111* CO2 28 29 28 23 GLUCOSE 120* 108* 140* 110* PHOS -- -- 3.2 2.6 MG 2.8* -- -- -- BUN 73* 73* 66* 48* CREATININE 2.89* 2.13* 1.54* 0.80 Assessment/ 1. - RICHARD 2/2 ATN (quinapril, hctz, hypotension on a background of volume depletion) 2. HTN - essential. 3. Volume depletion. 4. Hypokalemia. 5. Hypernatremia (2/2 dehydration 6. Azotemia/uremia Plan/ - Cr continues to improve, near baseline - No changes from renal standpoint - OK with current IVF, caution with overhydration. - K is stable - Na is improving at adequate rate - Avoid contrast. - Avoid large hemodynamic shift - Will follow closely [facility] I have independently seen and examined the patient and agree with above documented A & P. Any variance is noted below. crea improving Poor po, speech on consulted and recs noted Will continue ivf but will cut down rate and K in the fluids (spoke to RN) Caution not to fluid overload Avoid contrast Will follow/call if any questions Darwin Ruiz MD PRC team * John Smiley, PT - 09/24/2019 2:39 PM EDT Physical Therapy Facility/Department: [facility] TELEMETRY Initial Assessment NAME: Maria Antonia Youssef : 1940 Date of Service: 09/24/2019 Discharge Recommendations: Subacute/Detention Facility PT Equipment Recommendations Equipment Needed: No Assessment Body structures, Functions, Activity limitations: Decreased functional mobility ;Decreased strength;Decreased endurance;Decreased safe awareness;Decreased cognition Assessment: Patient max assist with transfers to walker and bed moblity supine sit ,unable to ambulate thus benifit from skilled PT Prognosis: Fair Decision Making: High Complexity History: Patient admitted with altered mental status Exam: AM-PAC Clinical Presentation: Patient has multiple comorbities along with dementia as well as max assist with bed moblity and and transfers with unable to ambulate thus benifit from skilled PT PT Education: PT Role;Goals;Plan of Care Patient Education: Plan of care supervion trnaferred to Rehab Services Dept physical therapist Barriers to Learning: DEMENTIA REQUIRES PT FOLLOW UP: Yes Activity Tolerance Activity Tolerance: Patient limited by cognitive status;Patient limited by fatigue;Patient limited by endurance Patient Diagnosis(es): The primary encounter diagnosis was Hypokalemia. Diagnoses of Acute renal failure, unspecified acute renal failure type (HCC), Altered mental status, unspecified altered mentalstatus type, and Leukocytosis, unspecified type were also pertinent to this visit. has a past medical history of Alzheimer's dementia without behavioral disturbance (HCC), Breast cancer screening, Degenerative joint disease of thoracic spine, Essential hypertension, Family history of diabetes mellitus, H/O colonoscopy, History of compression fracture of spine, Hypercholesteremia, Osteopenia, and Right carotid bruit. has a past surgical history that includes Ovary removal; Colonoscopy (2010); and Colonoscopy (02/10/2016). Restrictions Restrictions/Precautions Restrictions/Precautions: Fall Risk, General Precautions(DEMENTIA,BED ALARM) Required Braces or Orthoses?: No Vision/Hearing Vision: Impaired Vision Exceptions: Wears glasses at all times Hearing: Within functional limits Subjective General Chart Reviewed: Yes Patient assessed for rehabilitation services?: Yes Family / Caregiver Present: No Follows Commands: Impaired General Comment Comments: Okay to see per nursing Subjective Subjective: Pleasantly confused Pain Screening Patient Currently in Pain: Denies Pain Assessment Pain Assessment: 0-10 Pain Level: 0 Vital Signs Patient Currently in Pain: Denies Orientation Orientation Overall Orientation Status: Impaired Orientation Level: Disoriented to situation;Oriented to person;Disoriented to place;Disoriented to time Social/Functional History Social/Functional History Lives With: Spouse Type of Home: House Home Layout: One level Home Access: Stairs to enter with rails Entrance Stairs - Number of Steps: 3 Bathroom Shower/Tub: Walk-in shower Bathroom Toilet: Standard Bathroom Equipment: Grab bars in shower Bathroom Accessibility: Accessible Home Equipment: Rolling walker, Cane Receives Help From: Family ADL Assistance: Needs assistance(Spouse assists with bathing and dressing) Homemaking Assistance: Needs assistance Homemaking Responsibilities: No Ambulation Assistance: Needs assistance(No AD, spouse assists) Transfer Assistance: Needs assistance(Spouse assists) Active Ground Host/Hostess: No Patient's Ground Host/Hostess Info: spouse Occupation: Retired Additional Comments: Pt with hx of dementia, poor cognition on eval. Social fxn obtained from case mgmt. Cognition Cognition Overall Cognitive Status: Exceptions Arousal/Alertness: Inconsistent responses to stimuli Following Commands: Follows one step commands with increased time;Follows one step commands with repetition Attention Span: Attends with cues to redirect;Difficulty attending to directions;Difficulty dividing attention Memory: Decreased recall of biographical Information;Decreased medical terminologist memory;Decreased short term memory;Decreased recall of precautions;Decreased recall of recent events Safety Judgement: Decreased awareness of need for assistance Problem Solving: Decreased awareness of errors Insights: Decreased awareness of deficits Initiation: Requires cues for some Sequencing: Requires cues for some Cognition Comment: Pt with hx of dementia, admitted d/t increased confusion per . Pt very anxious during eval, required constant encouragement to complete functional tasks. Objective Observation/Palpation Posture: Fair AROM RLE (degrees) RLE AROM: WFL AROM LLE (degrees) LLE AROM : WFL Strength RLE Comment: unable to assess due to comprehension Strength LLE Comment: unable to assess due to comprehension Tone RLE RLE Tone: Normotonic Tone LLE LLE Tone: Normotonic Sensation Overall Sensation Status: WFL Bed mobility Rolling to Left: Maximum assistance Rolling to Right: Maximum assistance Transfers Sit to Stand: Maximum Assistance Stand to sit: Maximum Assistance Ambulation Ambulation?: No Stairs/Curb Stairs?: No Balance Posture: Fair Sitting - Static: Poor;+ Sitting - Dynamic: Poor Standing - Static: Poor(with fww) Plan Plan Times per week: 5visits Times per day: Daily Current Treatment Recommendations: Strengthening, Functional Mobility Training, Transfer Training, Gait Training, Balance Training, Endurance Training, Patient/Caregiver Education & Training, Safety Education & Training Plan Comment: Plan of care supervsion transferred to Rehab Services Dept physical therapist Safety Devices Type of devices: All fall risk precautions in place, Gait belt, Call light within reach, Positioning belt, Left in bed, Nurse notified, Bed alarm in place OutComes Score AM-PAC Mobility Inpatient How much difficulty turning over in bed?: A Lot How much difficulty sitting down on / standing up from a chair with arms?: A Lot How much difficulty moving from lying on back to sitting on side of bed?: A Lot How much help from another person moving to and from a bed to a chair?: A Lot How much help from another person needed to walk in hospital room?: Total How much help from another person for climbing 3-5 steps with a railing?: Total AM-[facility] Inpatient Mobility Raw Score : 10 AM-[facility] Inpatient T-Scale Score : 32.29 Mobility Inpatient CMS 0-100% Score: 76.75 Mobility Inpatient CMS G-Code Modifier : CL AM-PAC Score AM-[facility] Inpatient Mobility Raw Score : 10 (09/24/191438) AM-[facility] Inpatient T-Scale Score : 32.29 (09/24/191438) Mobility Inpatient CMS 0-100% Score: 76.75 (09/24/191438) Mobility Inpatient CMS G-Code Modifier : CL (09/24/191438) Goals Short term goals Time Frame for Short term goals: 4 visits Short term goal 1: Perform AAROM/PROM BLE 2sets/15reps to improve function Short term goal 2: Patient to improve bed moblity supine-sit mod/max assist Short term goal 3: Patient to improve sit-stand with mod assist Short term goal 4: Patient to improve sitting balance fair- Patient Goals Patient goals : unbale Therapy Time Individual Concurrent Group Co-treatment Time In 1330(CO-EVAL OT) Time Out 1340 Minutes 10 John Smiley PT * Sarah Pyle OT - 09/24/2019 2:27 PM EDT Occupational Therapy Occupational Therapy Initial Assessment Date: 09/24/2019 Patient Name: Maria Antonia Youssef : 1940 Date of Service: 09/24/2019 Discharge Recommendations: Subacute/Detention Facility OT Equipment Recommendations Equipment Needed: No Other: TBD Assessment Performance deficits / Impairments: Decreased functional mobility ;Decreased safe awareness;Decreased balance;Decreased ADL status;Decreased cognition;Decreased ROM;Decreased endurance;Decreased high-level IADLs;Decreased strength Assessment: Pt is an 79 yo female admitted to [facility] with AMS and RICHARD. Prior to admission, pt requiredassist from spouse for all ADLs/IADLs and transfers/mobility d/t hx of dementia. Pt is now at [facility] and is at risk for further decline d/t decreased balance, overall weakness/fatigue, and impair ed cognition. Pt is expected to benefit from further acute OT skilled services to increase indep and safety needed for occupational participation. Prognosis: Guarded Decision Making: Medium Complexity History: Pt's history significant for dementia. Detailed PMH is listed below. Exam: AM PAC Assistance / Modification: ANDREAS Rodriguez OT Education: Plan of Care;OT Role;Orientation Barriers to Learning: Cognition, fatigue noted REQUIRES OT FOLLOW UP: Yes Activity Tolerance Activity Tolerance: Patient limited by fatigue;Treatment limited secondary to decreased cognition Safety Devices Safety Devices in place: Yes Type of devices: All fall risk precautions in place;Nurse notified;Gait belt;Bed alarm in place;Call light within reach;Patient at risk for falls;Left in bed Patient Diagnosis(es): The primary encounter diagnosis was Hypokalemia. Diagnoses of Acute renal failure, unspecified acute renal failure type (HCC), Altered mental status, unspecified altered mentalstatus type, and Leukocytosis, unspecified type were also pertinent to this visit. has a past medical history of Alzheimer's dementia without behavioral disturbance (HCC), Breast cancer screening, Degenerative joint disease of thoracic spine, Essential hypertension, Family history of diabetes mellitus, H/O colonoscopy, History of compression fracture of spine, Hypercholesteremia, Osteopenia, and Right carotid bruit. has a past surgical history that includes Ovary removal; Colonoscopy (2010); and Colonoscopy (02/10/2016). Restrictions Restrictions/Precautions Restrictions/Precautions: Fall Risk, General Precautions(DEMENTIA,BED ALARM) Required Braces or Orthoses?: No Subjective General Chart Reviewed: Yes Patient assessed for rehabilitation services?: Yes Family / Caregiver Present: No Subjective Subjective: Per RN, pt ok to see. Pt confused on arrival, agreeable to participate in therapy eval with encouragement. Patient Currently in Pain: Denies Pain Assessment Pain Assessment: 0-10 Pain Level: 0 Vital Signs Patient Currently in Pain: Denies Social/Functional History Social/Functional History Lives With: Spouse Type of Home: House Home Layout: One level Home Access: Stairs to enter with rails Entrance Stairs - Number of Steps: 3 Bathroom Shower/Tub: Walk-in shower Bathroom Toilet: Standard Bathroom Equipment: Grab bars in shower Bathroom Accessibility: Accessible Home Equipment: Rolling walker, Cane Receives Help From: Family ADL Assistance: Needs assistance(Spouse assists with bathing and dressing) Homemaking Assistance: Needs assistance Homemaking Responsibilities: No Ambulation Assistance: Needs assistance(No AD, spouse assists) Transfer Assistance: Needs assistance(Spouse assists) Active Ground Host/Hostess: No Patient's Ground Host/Hostess Info: spouse Occupation: Retired Additional Comments: Pt with hx of dementia, poor cognition on eval. Social fxn obtained from case mgmt. Objective Vision: Within Functional Limits Hearing: Within functional limits Orientation Overall Orientation Status: Impaired Orientation Level: Oriented to person;Disoriented to place;Disoriented to time;Disoriented to situation Observation/Palpation Posture: Fair Balance Sitting Balance: Moderate assistance(Pt MOD A seated EOB initially, able to progress to SBA ) Standing Balance: Maximum assistance(At fww) Functional Mobility Functional Mobility Comments: Pt requires MAX A for transfers/standing, mobility deferred at this time d/t safety concerns. ADL Feeding: Setup;Supervision Grooming: Minimal assistance UE Bathing: Moderate assistance LE Bathing: Dependent/Total UE Dressing: Moderate assistance LE Dressing: Dependent/Total Toileting: Maximum assistance Additional Comments: Pt with soiled brief on arrival, assisted to doff/christian clean brief. Pt required TOTAL A overall, assisted to thread tamara feet through brief while seated EOB, then assisted to manage over hips while in standing at fww. Pt required MAX A x 1 to maintain standing at fww, then MAX Ax 2nd person to complete LB dressing. Bed mobility Supine to Sit: Maximum assistance;2 Person assistance Sit to Supine: Maximum assistance;2 Person assistance Scooting: Maximal assistance Comment: Pt with some initiation but requires MAX A x 2 for all bed mobility tasks. Pt denies dizziness with change in position. Transfers Sit to stand: Maximum assistance Stand to sit: Maximum assistance Transfer Comments: At fww Cognition Overall Cognitive Status: Exceptions Arousal/Alertness: Inconsistent responses to stimuli Following Commands: Follows one step commands with increased time;Follows one step commands with repetition Attention Span: Attends with cues to redirect;Difficulty attending to directions;Difficulty dividing attention Memory: Decreased recall of biographical Information;Decreased medical terminologist memory;Decreased short term memory;Decreased recall of precautions;Decreased recall of recent events Safety Judgement: Decreased awareness of need for assistance Problem Solving: Decreased awareness of errors Insights: Decreased awareness of deficits Initiation: Requires cues for some Sequencing: Requires cues for some Cognition Comment: Pt with hx of dementia, admitted d/t increased confusion per . Pt very anxious during eval, required constant encouragement to complete functional tasks. Sensation Overall Sensation Status: WFL LUE AROM (degrees) LUE AROM : WFL RUE AROM (degrees) RUE AROM : WFL LUE Strength Gross LUE Strength: WFL RUE Strength Gross RUE Strength: WFL Plan Plan Times per week: 4 visits Times per day: Daily Current Treatment Recommendations: Strengthening, Endurance Training, Patient/Caregiver Education & Training, ROM, Equipment Evaluation, Education, & procurement, Cognitive Reorientation, Self-Care / ADL, Balance Training, Cognitive/Perceptual Training, Functional Mobility Training, Safety E ducation & Training Plan Comment: Goals and POC made in collaboration with pt. Patient's occupational therapy plan of care supervision is transferred to Inpatient Therapy Services Department occupational therapist. AM-PAC Score -[facility] Inpatient Daily Activity Raw Score: 14 (09/24/191426) [facility] Inpatient ADL T-Scale Score : 33.39 (09/24/191426) ADL Inpatient [facility] 0-100% Score: 59.67 (09/24/191426) ADL Inpatient [facility] G-Code Modifier : CK (09/24/191426) Goals Short term goals Time Frame for Short term goals: 4 visits Short term goal 1: Pt will complete self-feeding/grooming tasks with setup/SUPV Short term goal 2: Pt will complete UB ADLs with MIN A Short term goal 3: Pt will complete toileting at [facility] including transfer with MOD A Short term goal 4: Pt will participate in functional sitting tasks while seated EOB for >10 minutes with MIN A Patient Goals Patient goals : Pt unable to state goals Therapy Time Individual Concurrent Group Co-treatment Time In 1330(Co-eval with PT) Time Out 1340 Minutes 10 Sarah Pyle OT * Vicky Briceño, RD, LD - 09/24/2019 12:30 PM EDT Nutrition Assessment Type and Reason for Visit: Initial, Positive Nutrition Screen(pt with reduced poor po for 4 -7 dayspta ) Nutrition Recommendations: 1) suggest to liberalize diet to 2 gm sodium for htn (K,phos nomal) 2) per MNT protocol, will initiate Ensure compact at breakfast for poor po( 220 fermín, 9 gm pro/serving) . 3)Please document PO intakes consistently in the flowsheet to better assess intake adequacy. 4)await workup. 5)suggest new wt 6)Monitor labs, status, intakes,weights to reassess. Follow up at least weekly Nutrition Assessment: 79 y.o. female with a past medical history of Alzheimer's dementia, hypertension, high cholesterol presented today because of generalized weakness and lethargy. She presents by EMS she lives with her . This been no reports of any injury or fall. Apparently she been muchmore altered for the past couple days and normal, not eating not drinking very weak and lethargic. P atient due to her history of dementia really cannot cooperate with any history (r/o uti) Malnutrition Assessment: Malnutrition Status: At risk for malnutrition Context: Acute illness or injury Findings of the 6 clinical characteristics of malnutrition (Minimum of 2 out of 6 clinical characteristics is required to make the diagnosis of moderate or severe Protein Calorie Malnutrition based on AND/ASPEN Guidelines): 1. Energy Intake-Less than or equal to 50% of estimated energy requirement, (3 days) 2. Weight Loss-(poss 12 lbs but family says no), unable to assess 3. Fat Loss- , 4. Muscle Loss-Unable to assess, 5. Fluid Accumulation-No significant fluid accumulation, 6. Supply Chain Analyst Strength-Not measured Nutrition Risk Level: High Nutrient Needs: Estimated Daily Total Kcal: 0291-4933 Estimated Daily Protein (g): 51-64 Estimated Daily Total Fluid (ml/day): per md or 1.6 liters Nutrition Diagnosis: Problem: Inadequate oral intake Etiology: related to Cognitive or neurological impairment, Renal dysfunction, Cardiac dysfunction ? Signs and symptoms: as evidenced by Diet history of poor intake, Lab values Objective Information: Nutrition-Focused Physical Findings: alb 3.1bun 66, creat 1.54, glu 140, k,phos wml family states was eatign wellexcept lasts 7 days but worse last 4( nothing but 1 galss water in 3 days), emmie 13,4/ bm Wound Type: Stage I(excoriated groin) Current Nutrition Therapies: Oral Diet Orders: Renal Oral Diet intake: Unable to assess Oral Nutrition Supplement (ONS) Orders: Low Volume Supplement(at breakfast) ONS intake: Unable to assess Anthropometric Measures: Ht: 5' 5 (165.1 cm) Current Body Wt: 140 lb (63.5 kg)(? adm ) Admission Body Wt: Usual Body Wt: 152 lb (68.9 kg)(08/02/19 per family ) % Weight Change: , ? wt change- or loss of 12 lbs in 2 mos?? [place] Body Wt: 125 lb (56.7 kg), % [place] Body 112 Adjusted Body Wt: , body weight adjusted for BMI Classification: BMI 18.5 - 24.9 Normal Weight Nutrition Interventions: Continue current diet, Start ONS Continued Inpatient Monitoring Nutrition Evaluation: Evaluation: Goals set Goals: pt will receive,tolerate adequate nutrition with safe swallow - consume>50% of meals,ons- labs trend toward baseline Monitoring: Meal Intake, Supplement Intake, Diet Tolerance, Skin Integrity, I&O, Mental Status/Confusion, Pertinent Labs, Weight, Monitor Hemodynamic Status, Monitor Bowel Function Contact Number:[phone] * Devin Felder MD - 09/24/2019 11:42 AM EDT [facility] Progress Note Subjective/ 79 y.o. year old female who we are seeing in consultation for RICHARD. Still confused, but has appropriate affect and is pleasant. BPs improved. Continues to be on IVF. Will follow. Objective/ Vitals: 09/23/19 2330 09/24/19 0737 09/24/19 0742 09/24/19 0743 BP: (!) 104/59 119/83 113/84 (!) 134/104 Pulse: 75 79 85 108 Resp: 18 Temp: 97.6 F (36.4 C) 97.3 F (36.3 C) TempSrc: Temporal Temporal Temporal Temporal SpO2: 97% 95% Weight: Height: 24HR INTAKE/OUTPUT: No intake or output data in the 24 hours ending 09/24/19 1142 Constitutional: NAD, cooperative, confused. Head: AT NC Neck: No JVD, no thyromegaly Cardiovascular: S1, S2 without m/r/g Respiratory: CTA B without w/r/r Abdomen: soft, nt Ext: NO b/l LE edema Current Facility-Administered Medications Medication Dose Route Frequency Provider Last Rate Last Dose cefTRIAXone sodium 1 g in sodium chloride 0.9 % 100 mL IVPB (add-vantage) 1 g Intravenous Q24H Rachel Everett MD Stopped at 09/24/19 1114 donepezil (ARICEPT) tablet 5 mg 5 mg Oral Nightly Rachel Everett MD 5 mg at 09/23/19 2148 melatonin tablet 3 mg 3 mg Oral Nightly Rachel Everett MD 3 mg at 09/23/192147 memantine (NAMENDA) tablet 10 mg 10 mg Oral BID Rachel Everett MD 10 mg at 09/24/19 0756 sodium chloride flush 0.9 % injection 10 mL 10 mL Intravenous 2 times per day Rachel Everett MD 10 mL at 09/24/19 0756 sodium chloride flush 0.9 % injection 10 mL 10 mL Intravenous PRN Rachel Everett MD acetaminophen (TYLENOL) tablet 650 mg 650 mg Oral Q6H PRN Rachel Everett MD Or acetaminophen (TYLENOL) suppository 650 mg 650 mg Rectal Q6H PRN Rachel Everett MD promethazine (PHENERGAN) tablet 12.5 mg 12.5 mg Oral Q6H PRN Rachel Everett MD Or ondansetron (ZOFRAN) injection 4 mg 4 mg Intravenous Q6H PRN Rachel Everett MD enoxaparin (LOVENOX) injection 40 mg 40 mg Subcutaneous Daily Rachel Everett MD 40 mg at 09/24/19 0756 dextrose 5 % and 0.45 % NaCl with KCl 40 mEq infusion Intravenous Continuous Devin Felder MD 125 mL/hr at 09/23/19 2141 dextrose 5% and 0.45% NaCl with KCl 40 mEq 125 mL/hr at 09/23/19 2141 Data/ Recent Labs 09/23/19 1251 09/24/19 0439 WBC 16.7* 13.4* HGB 12.8 11.5* HCT 39.0 35.5 MCV 89.2 89.6 PLT 183 161 Recent Labs 09/23/19 1251 09/23/19 2136 09/24/19 0439 NA 147* 147* 144 K 2.9* 3.0* 3.8 CL 106 106 110* CO2 28 29 28 GLUCOSE 120* 108* 140* PHOS -- -- 3.2 MG 2.8* -- -- BUN 73* 73* 66* CREATININE 2.89* 2.13* 1.54* Assessment/ 1. - RICHARD 2/2 ATN (quinapril, hctz, hypotension on a background of volume depletion) 2. HTN - essential. 3. Volume depletion. 4. Hypokalemia. 5. Hypernatremia (2/2 dehydration) Azotemia/uremia Plan/ - Cr improving. Reduce IVF to maintenance at this point, caution with overhydration. K levels improving. Urine studies noted. Noted no hydro per report on CT ABD/pelvis, hold off on renal USG. Avoid contrast. D/w Dr. Everett. - - Devin Felder MD [facility] * Rachel Everett MD - 09/24/2019 11:21 AM EDT Hospitalist Progress Note 09/24/2019 11:21 AM [phone]: Please page al @ [phone] for patient care issues. [phone]: Please page [facility] night Hospitalist for any issues. Subjective: Admit Date: 09/23/2019 PCP: Joseluis Ardon, DO No overnight issues. Says ok, has incontinence of the urine, Denies chest pain, cough, sob, abdominal pain, nausea, vomiting, diarrhea, constipation, fevers, or chills. Denies any recent travel hx or sick contacts. DIET RENAL; Patient Vitals for the past 96 hrs (Last 3 readings): Weight 09/23/19 1945 140 lb (63.5 kg) Medications: dextrose 5% and 0.45% NaCl with KCl 40 mEq 125 mL/hr at 09/23/192140 cefTRIAXone (ROCEPHIN) IV 1 g Intravenous Q24H donepezil 5 mg Oral Nightly melatonin 3 mg Oral Nightly memantine 10 mg Oral BID sodium chloride flush 10 mL Intravenous 2 times per day enoxaparin 40 mg Subcutaneous Daily LABS: CBC: Recent Labs 09/23/19 1251 09/24/19438 WBC 16.7* 13.4* RBC 4.37 3.96 HGB 12.8 11.5* HCT 39.0 35.5 MCV 89.2 89.6 RDW 14.0 14.3 PLT 183 161 BMP: Recent Labs 09/23/19 1251 09/23/19213509/24/19438 NA 147* 147* 144 K 2.9* 3.0* 3.8 CL 106 106 110* CO2 28 29 28 BUN 73* 73* 66* CREATININE 2.89* 2.13* 1.54* GLUCOSE 120* 108* 140* CALCIUM 9.4 9.1 8.6 ANIONGAP 13 11 7 LIVER PROFILE: Recent Labs 09/23/19 1251 09/24/19438 AST 30 -- ALT 19 -- BILITOT 0.5 -- ALKPHOS 106 -- LABALBU 3.6 3.1* PROT 7.0 -- PT/INR: No results for input(s): PROTIME, INR in the last 72 hours. CARDIAC ENZYMES: Recent Labs 09/23/19 1251 09/23/192135 TROPONINI 0.044* 0.026 Procalcitonin: No results found for: PROCAL Objective: Vitals: BP (!) 134/104 Pulse 108 Temp 97.3 F (36.3 C) (Temporal) Resp 18 Ht 5' 5 (1.651 m) Wt 140 lb (63.5 kg) SpO2 95% BMI 23.30 kg/m Pulse Ox: SpO2 Av % Min: 95 % Max: 98 % Supplemental O2: General appearance: Appears weak, No apparent distress, appears stated age and cooperative with exam HEENT: Normal cephalic, atraumatic without obvious deformity. Pupils equal, round, and reactive to light. Extra ocular muscles intact. Conjunctivae/corneas clear. Neck: Supple, with full range of motion. No jugular venous distention. Trachea midline. No lymphadenopathy. Respiratory: Normal respiratory effort. Clear to auscultation, bilaterally without Rales/Wheezes/Rhonchi. Cardiovascular: Regular rate and rhythm with normal S1/S2 without murmurs, rubs or gallops. Abdomen: Soft, non-tender, non-distended with normal bowel sounds. No rebound or guarding. Musculoskeletal: No clubbing, cyanosis or edema bilaterally. Full range of motion without deformity. Skin: Skin color, texture, turgor normal. No rashes or lesions. Neurologic: Neurovascularly intact without any focal sensory/motor deficits. Cranial nerves: II-XIIintact, grossly non-focal. Assessment # Acute kidney injury due to ATN - cr improved, BP meds held, watch BP, on IVF, nephrology on board # Urinary incontinence with smell in the urine, start empiric rocephin # A.dementia - on meds Plan : Empiric abx, urine culture, will follow All test and lab results reviewed Consult notes reviewed Am labs, replace lytes prn PT/OT Advance care planning has been discussed, total time spent is greater than 30 mins -DVT prophylaxis: [] Lovenox [] Heparin [] SCDs [x] Encourage ambulation [] Already on Anticoagulation Advance Directive: Full Code Discharge planning: TBD RACHEL EVERETT MD, MD Division of Hospitalist Medicine Inpatient Medical Services This report was created using the [employer] Speaking voice- activated system. Despiteprompt dictation and careful editorial review, there may be subtle contextual errors in this report, due to misrecognition of the spoken word. documented in this encounter Assessments Diagnosis Hypokalemia Hypopotassemia Acute renal failure, unspecified acute renal failure type (HCC) Altered mental status, unspecified altered mental status type Leukocytosis, unspecified type RICHARD (acute kidney injury) (HCC) Acute kidney failure, unspecified Diagnosis Lumbar contusion, initial encounter Additional Source Comments INFORMATION SOURCE (unrecogn ized section and content) DATE CREATED AUTHOR AUTHOR'S ORGANIZ ATION 10/09/2019 [facility] DATE CREATED AUTHOR AUTHOR'S ORGANIZ ATION 11/16/2019 [facility] DATE CREATED AUTHOR AUTHOR'S ORGANIZ ATION 06/13/2022 [facility] Reason for Visit (unrecogniz ed section and content) Reason Comments Head Injury no LOC Fall trip/fall indoor on carpet FOR RECORDS PERTAINING TO PATIENTS WHO ARE OR HAVE BEEN ENROLLED IN A CHEMICAL DEPENDENCY/SUBSTANCEABUSE PROGRAM, SOME INFORMATION MAY BE OMITTED. This clinical summary was aggregated from multiple sources. Caution should be exercised in using it in the provision of clinical care. This summary normalizes information from multiple sources, and as a consequence, information in this document may materially change the coding, format and clinical context of patient data. In addition, data may be omitted in some cases. CLINICAL DECISIONS SHOULD BE BASED ON THE PRIMARY CLINICAL RECORDS. [facility] [employer] [facility]. provides no warranty or guarantee of the accuracy or completeness of information in this document.
[2023-06-22 07:42] LABS: INR Fingerstick 3.5
== END ==
LOC: OLS.ACH 05:00
PROVIDERS: PCP Family Medicine; Visit Provider Internal Medicine
DX: I82.5Y2 Chronic embolism and thrombosis of unspecified deep veins of left proximal lower extremity (principal)
CPT/HCPCS: 36416; 85610

== ENCOUNTER → 2023-06-23 | Outpatient (REF) | payer MEDICARE, MEDICAID, SELFPAY ==
[2023-06-23 09:55] LABS: INR Fingerstick 2.2
== END ==
LOC: OLS.ACH 04:00
PROVIDERS: PCP Family Medicine; Referring Provider Internal Medicine; Visit Provider Internal Medicine
DX: I82.5Y2 Chronic embolism and thrombosis of unspecified deep veins of left proximal lower extremity (principal)
CPT/HCPCS: 36416; 85610

== ENCOUNTER → 2023-06-30 | Outpatient (REF) | payer MEDICARE, MEDICAID, SELFPAY ==
[2023-06-30 07:37] LABS: INR Fingerstick 2.2; Prothrombin Time Fingerstick 24.3 SEC (11.7-14.9)
== END ==
LOC: OLS.ACH 05:00
PROVIDERS: PCP Family Medicine; Visit Provider Internal Medicine
DX: I82.5Y2 Chronic embolism and thrombosis of unspecified deep veins of left proximal lower extremity (principal)
CPT/HCPCS: 36416; 85610